=== PATIENT | male | born 1955 | race Caucasian/White ===

== ENCOUNTER 2024-02-18 14:30 | Inpatient (IN) | payer OTHER, MEDICARE, SELFPAY ==
[2024-02-18] VITALS (11 sets, daily range): BP systolic 129–153; BP diastolic 87–107; BMI 29.0; BMI 28.0
--- NOTE | 2024-02-18 11:50 | ED.GENMED ---
History of Present Illness
General
Chief Complaint: Breathing Problem
Source: patient and spouse
Time Seen by Provider: 02/18/24 11:30
History of Present Illness
History of Present Illness:
69-year-old male presents to the emergency room with complaints of shortness of breath which seems to be most prominent with exertion like carrying objects at work. He also feels particular short of breath at night and when he is lying flat. He
states he is 'jolted awake' by a sensation that he cannot catch his breath and that his heart stopped. Patient has a distant history of atrial fibrillation for which he received a cardioversion. He does not take oral anticoagulant. He denies any
recent change in medications. He does not monitor his weight. He has noticed some edema in his legs. Patient also feels like he has edema in his neck and chest secondary to a radical neck dissection for tongue cancer. Patient denies any
tightness or heaviness in his chest. Patient states the most distressing thing about his symptoms is his inability to sleep. He has not had adequate sleep in over a week. He is attempted sleeping propped up with pillows, sitting up in a chair.
He does feel a bit better the more propped up he is but not enough to get adequate sleep.
Phy Exam
Physical Exam
Physical Exam:
General: Awake, Alert, Oriented X3. No acute distress.
Vitals: unremarkable
Head: Atraumatic
Eyes: Pupils equal, EOMI
Throat: Airway intact, no exudates
Neck: Trachea midline
Lungs: Crackles bilateral bases
Heart: Regular rate, no murmurs
Abd: Soft, Nontender, No pulsatile mass
Neuro: Nonfocal l
Skin: Warm, dry, no rash
Extremities: pulses equal b/l, 1+ edema
Scores
[id number] Score for Afib Stroke Risk
Age in Years (65=0, 65-74=1, >/=75=2): 65-74
Sex (Female=+1): Male
Congestive Heart Failure History (Yes=+1): Yes
Hypertension History (Yes=+1): No
Stroke/TIA/Thromboembolism History (Yes=+2): No
Vascular Disease History (Yes=+1): No
Diabetes Mellitus (Yes=+1): No
Score: 2
Anticoagulation Recommendations: Recommend anticoagulation (as validated in nonvalvular fib)
Heart Failure Risk
Heart Failure Risk Score: Yes
History of Stroke or TIA: No
History of intubation for respiratory distress: No
Heart rate on ED arrival >/= 110: Yes
SaO2 <90% on arrival on room air: No
HR >/=110 during 3min walk test (or too ill to perform test): Yes
ECG has acute ischemic changes: No
Urea >/=12mmol/L (BUN 33.6mg/dL): No
Serum CO2>/=35mmol/L: No
Troponin I or T elevated to MT Level (0.4mg/dL): No
NT-proBNP >/=5,000ng/L (5,000pg/ml): Yes
HF Risk Score: 3
Admission Status: HIGH RISK 15.9% Consider SNF treatment or admission to hospital
Course
Orders/Labs/Results
Orders:
Orders
02/18/24 11:07
EKG [Electrocardiogram (*1)] Urgent
Reason for Study: Shortness of Breath
EKG- Treatment ONCE
02/18/24 11:49
Cardiac Monitoring- Treatment ONCE
CR Chest - 2 Views Urgent
Comment:
Reason For Exam: sob, peripheral edema
02/18/24 11:51
Basic Metabolic Panel Urgent
Complete Blood Count/With Diff Urgent
NT-proBNP Urgent
Troponin I Urgent
02/18/24 12:44
Apixaban [Eliquis] 5 mg PO NOW STA
Furosemide [Lasix] 40 mg IV NOW STA
Abnormal Lab Results
02/18/24
11:51
RBC 4.56 L 10^6/uL
(4.70-6.10)
MCV 94.5 H fL
(80.0-94.0)
MCH 33.1 H pg
(27.0-31.0)
MPV 11.0 H fL
(7.4-10.4)
Absolute Monos (auto) 0.8 H 10^3/uL
(0.1-0.6)
Lymphocytes % 16.9 L %
(20.5-51.1)
Monocytes % 11.1 H %
(1.7-9.3)
Carbon Dioxide 20 L mmol/L
(22-30)
BUN 22 H mg/dl
(9-20)
Glucose 113 H mg/dl
(70-99)
02/18/24 11:51
02/18/24 11:51
Vital Signs
Initial and Last Documented VS:
Initial Vital Signs
Pulse Resp BP Pulse Ox
97 20 141/98 98
02/18/24 10:59 02/18/24 10:59 02/18/24 10:59 02/18/24 10:59
Last Documented Vital Signs
Pulse Resp BP Pulse Ox
81 34 129/89 97
02/18/24 12:52 02/18/24 11:19 02/18/24 11:17 02/18/24 11:19
MDM/Problems Addressed
Differential Diagnosis Includes:
CHF, symptomatic anemia, angina
MDM/Problems Addressed:
Patient presents with dyspnea, paroxysmal nocturnal dyspnea and edema. Clinically congestive heart failure seemed the most likely diagnosis. Pulmonary edema was confirmed on chest x-ray. His BNP is quite elevated. Patient will receive diuresis.
He is also in A-fib. He is not anticoagulated and based on his [id number] score he should be. Patient not a candidate for cardioversion in the emergency room for couple reasons. First he is not anticoagulated second he is pulmonary edema which
would make him much more likely to have respiratory complications of sedation.
*Radiology
Radiology exam reviewed: preliminary read by ED provider (Personally viewed the patient's chest x-ray and see pulmonary edema)
*Pulse Oximetry
Patient hypoxic: no
*EKG
Interpreted by ED Provider?: Yes
Interpretation: normal
Heart Rate: 88
Rate: normal
Rhythm: a-fib
Interval: normal interval
Ischemia: non-specific ST changes
*Guide Plant Interpretation
Rate: normal
Interpretation: abnormal
Rhythm: a-fib
*Critical Care Note
Total Time (30-74mins, 75-104mins- exclusive of procedures): Not Applicable
ED Attending Note
-
Portions of this chart may have been created with voice recognition software.� Occasional wrong word or��sound alike� substitutions may have occurred due to the inherent limitations of voice recognition software.
Discharge Plan
Departure
Patient Disposition: Admit
Date of Disposition: 02/18/24
Time of Disposition: 12:45
Admit to: Telemetry
Presentation/result/management discussed w/ accepting MD/DO: Hospitalist
Condition: Fair
Discharge Problem:
CHF (congestive heart failure), A-fib
Prescriptions:
No Action
multivitamin Tablet
1 tab PO DAILY
losartan 50 mg tablet
50 mg PO BID
meloxicam 15 mg tablet
15 mg PO DAILYPRN PRN (Reason: mild pain)
sildenafil 25 mg Tablet
25 mg PO DAILYPRN PRN (Reason: heart tightness)
metoprolol tartrate 50 mg tablet
25 mg PO BID
ibuprofen [Advil] 200 mg Tablet
600 mg PO Q6H PRN (Reason: mild pain)
omeprazole 20 mg Capsule,Delayed Release(Dr/Ec)
20 mg PO DAILY
coenzyme Q10 [Co Q-10] 100 mg Capsule
100 mg PO DAILY
magnesium oxide 500 mg Capsule
500 mg PO BID
Probiotic 3 billion cell Capsule
3,000 mmu cells PO DAILY
turmeric 400 mg Capsule
1 mg PO DAILY
Nitric Boost
1 dose PO DAILY
Super Beets
1 dose PO DAILY
Referrals:
Farhan Marie DO [Family Provider] -
Interventions
Interventions:
*Risk Screen - Suicide Last Done: 02/18/24 10:59
*General Assessment Last Done: 02/18/24 10:59
*Neglect/Abuse Screening Last Done: 02/18/24 10:59
*ED COVID-19 Vaccine History Last Done: 02/18/24 10:59
ED- Cardiac Assessment Last Done: 02/18/24 11:29
ED- Pulmonary Assessment Last Done: 02/18/24 11:29
Discharge Date and Time
Print Language: KAZAKH
[2024-02-18 12:26] LABS: Blood Urea Nitrogen 22 mg/dl (9-20); Calcium 9.3 mg/dl (8.4-10.2); Carbon Dioxide 20 mmol/L (22-30); Chloride 107 mmol/L (98-107); Estimated Creatinine Clearance 87 ml/min; Glucose 113 mg/dl (70-99); Potassium 4.4 mmol/L (3.5-5.1); Sodium 137 mmol/L (135-145); eGFR > 60.00
[2024-02-18 12:27] LABS: % Basophils 0.3 % (0-2); % Eosinophils 1.7 % (0-6); % Immature Granulocytes 0.1 % (0-0.5); % Lymphocytes 16.9 % (20.5-51.1); % Monocytes 11.1 % (1.7-9.3); % Neutrophils 69.9 % (42.2-75.2); Absolute Eosinophils 0.1 10^3/uL (0-0.7); Absolute Lymphocytes 1.3 10^3/uL (1.2-3.4); Absolute Monocytes 0.8 10^3/uL (0.1-0.6); Absolute Neutrophils 5.3 10^3/uL (1.4-6.5); Hematocrit 43.1 % (39.0-52.0); Hemoglobin 15.1 g/dL (13.0-18.0); Mean Corpuscular Hgb 33.1 pg (27.0-31.0); Mean Corpuscular Volume 94.5 fL (80.0-94.0); Nucleated Red Blood Cells % 0 % (-); Platelet Count 193 10^3/uL (130-400); Red Blood Cell Count 4.56 10^6/uL (4.70-6.10); Red Cell Dist. Width 12.6 % (11.5-14.5); White Blood Cell Count 7.6 10^3/uL (4.8-10.8)
[2024-02-18 12:38] LABS: NT-proBNP 6810 pg/ml; Troponin I 0.025 ng/ml
[2024-02-18] MEDS: LASIX 40 MG IV (12:52)
[2024-02-18] MEDS: ELIQUIS 5 MG PO ×2 (12:53→19:39)
--- NOTE | 2024-02-18 13:33 | HPS.HSE ---
Addendum entered and electronically signed by Alli Mancini MD 02/18/24 14:55:
I saw and examined the patient.
The SEMICONDUCTOR MANUFACTURING TECHNICIAN or PA's note was reviewed and I agree with the note.
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
of breath and dyspnea exertion. Further complaints of orthopnea at night. Patient is a persistent worsened over the last 7 days, causing inability to sleep. Further associated with increased lower extremity edema. Patient responded well to IV
Lasix in the ED. Appears to be noncompliant with some medications. Vitals showing tachypnea with respiratory rate of 26, saturating 97% on room air, blood pressure 137/91. Pulse 91. proBNP 6800, troponin x 1 negative. X-ray with mild
interstitial edema and small left pleural effusion. Plan�follow-up TSH, trend troponins, IV Lasix 40 mg daily, cardiology consulted, 2D echo, continue losartan, obtain old records from [place]. Hold sildenafil for now. Progress atrial
fibrillation, heart rate elevated upon examination, increase metoprolol to 50 mg twice daily, start Eliquis. M brijesh for alcohol abuse, Ativan IV as needed. Avoid nephrotoxic agents and monitor BMP while diuresing.
Original Note:
Family Physician
-
Family Physician: Farhan Marie
Chief Complaint
-
Shortness of breath, orthopnea, insomnia x 7 days, edema to legs
History of Present Illness
69-year-old male complaining of shortness of breath and dyspnea on exertion when carrying objects at work. He also complains of orthopnea at night. He reports being awoken by a jolting sensation where he cannot catch his breath. He states the
symptoms have persisted over the past 7 days along with insomnia. He has been using Viagra at night for shortness of breath denies history of pulmonary HTN. Last dose was 12 PM. He had past medical history of A-fib status post cardioversion 2018
at [facility] And is not on any anticoagulation therapy. He also reports increased edema in his legs. He does report some chronic edema in his neck and chest secondary to radical neck dissection for squamous cell tongue cancer. He states
he gets migraines 2-3 times a week and does take 1 Excedrin Migraine which does contain to 50 mg of aspirin. He denies fever, chills, chest pain, abdominal pain, nausea, vomiting, diarrhea, urinary symptoms he was noted to be in new onset CHF in
the ER with A-fib RVR requiring cardioversion. He received IV Lasix and is starting on oral dose Eliquis. He has past medical history of A-fib with history of cardioversion, cardiomyopathy, migraine,, squamous cell tongue with resection,
arthritis, GERD, alcohol abuse.
Medical History
Past Medical History
Past Medical History: Reports Other
Additional Past Medical History:
A-fib with history of cardioversion,
cardiomyopathy patient believes his last echo EF was 30% 2 years ago at [place],
migraines 2 to 3 days a week,,
squamous cell tongue with resection with anterior lymph nodes and base of tongue resection at [facility] 12 years ago
arthritis,/DDD cervical
GERD
alcohol abuse
Past Surgical History: Reports Other
Additional Past Surgical History:
squamous cell tongue with resection with anterior lymph nodes and base of tongue resection at [facility] 12 years ago
A-fib cardioversion 2018 [facility]
Hernia repair
Social History
Tobacco: Non-smoker
Alcohol: Daily (3 beers +8 ounces of either scotch or bourbon, prior 1.7 L of scotch or bourbon +1/2 case of beer stopped 1 month ago mid January)
Drug: None
Personal:
Living: With Family
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
Family History
Family History: Other (Father A-fib, HTN, [place], CABG, CVA, mother uterine CA, Sister alive mental health disorders)
Allergies / Home Medications
Allergies reflects when Allergies were last updated in [email or web address].
Home Medications with original date entered in [email or web address]
Allergy/Medication List:
Allergies
Allergy/AdvReac Type Severity Reaction Status Date / Time
No Known Allergies Allergy Unverified 02/18/24 11:32
Home Medications
Nitric Boost 1 dose PO DAILY 02/18/24
Super Beets 1 dose PO DAILY 02/18/24
coenzyme Q10 100 mg capsule (Co Q-10) 100 mg PO DAILY 02/18/24
ibuprofen 200 mg tablet (Advil) 600 mg PO Q6H PRN mild pain 02/18/24
lactobacillus combination no.4 3 billion cell capsule (Probiotic) 3,000 mmu cells PO DAILY 02/18/24
losartan 50 mg tablet 50 mg PO BID 02/18/24
magnesium oxide 500 mg capsule 500 mg PO BID 02/18/24
meloxicam 15 mg tablet 15 mg PO DAILYPRN PRN mild pain 02/18/24
metoprolol tartrate 50 mg tablet 25 mg PO BID 02/18/24
multivitamin 1 tab PO DAILY 02/18/24
omeprazole 20 mg capsule,delayed release 20 mg PO DAILY Gastrointestinal Issue 02/18/24
sildenafil 25 mg tablet 25 mg PO DAILYPRN PRN heart tightness 02/18/24
turmeric 400 mg capsule 1 mg PO DAILY 02/18/24
Review of Systems
-
History Source: Patient and Family ( )
A 12 point ROS was completed and negative except as noted: Yes
Constitutional: Reports Sleep Disturbance (Insomnia x 7 days); Denies Fever or Chills
EENT: Denies Sore Throat, Mouth Swelling or Runny Nose
Respiratory: Reports Cough (Nonproductive) and Trouble Breathing (DAY)
Cardiac: Denies Chest Pain, Diaphoresis, Palpitations or Syncope
Abdomen/GI: Denies Abdominal Pain, Nausea, Vomiting, Diarrhea, Constipated, Bloody Stools or Black Stools
: Denies Dysuria, Frequency, Flank Pain, Incontinence, Difficulty Voiding or Urgency
Musculoskeletal: Reports Edema (+2 lower extremity pitting edema); Denies Joint Pain
Skin: Denies Itching or Rash
Neurological: Denies Dizzy, Headache or Weakness
Endocrine: Reports No Symptoms
Hematologic/Lymphatic: Reports No Symptoms
Psych: Reports Calm
Physical Exam
Vital Signs
Vital Signs
Pulse Resp BP Pulse Ox
81 34 129/89 97
02/18/24 12:52 02/18/24 11:19 02/18/24 11:17 02/18/24 11:19
Physical Exam
General: Comfortable and Conversant; No Pain, Fever or Chills
HEENT: NormoCephalic, Anicteric, Moist mucous membranes, PERRLA, [place] Conjunctivae, No Ptosis and Other (No visible neck swelling)
Respiratory: Clear; No Wheezes, Rales or Rhonchi
Cardiac: S1/S2, Irregular Rhythm (A-fib controlled rate 81 bpm) and Peripheral Edema (+2 bilateral lower extremity edema); No Murmur, Rub or Gallop
GI: Soft, Non Tender, Non Distended, Normal Bowel Sounds and No Hepatosplenomegaly
Rectal: Deferred by Provider
Genito-urinary: Deferred by me
Musculoskeletal: No Clubbing, No Cyanosis, Edema, Left Lower Extremity (+2 lower extremity) and Edema, Right Lower Extremity (+2 lower extremity); No Edema, Left Upper Extremity or Edema, Right Upper Extremity
Skin: Warm and Dry; No Rash or Jaundice
Neuro: AO x 3, No Motor Deficits, Nonfocal/grossly intact, Cranial Nerves Intact and No Sensory Deficits; No Slurred Speech, Facial Droop or Tremors
Psych: Calm
Laboratory Results
-
02/18/24 11:51
02/18/24 11:51
Laboratory Results
Troponin I 0.025 ng/ml 02/18/24 11:51
Data Reviewed
-
Diagnostic Radiology: Report Reviewed by me
Lab Data: Labs Reviewed by me
Impression/Plan
-
Impression/plan:
Admit to Tele
#New onset CHF
#Hx cardiomyopathy patient believes last EF was 38% 2021 at [place]
BNP 6810
IV Lasix 40 mg given in ER
Check 2D echo
Consult [facility] cardiology
-Obtain old records from [place] cardiology including echo
-TSH with free T4 reflex
-Hold sildenafil 25 mg as needed-patient has been taking nightly for the past 7 days for shortness of breath
CXR cardiomegaly with mild interstitial edema and small left pleural effusion
#Atrial fibrillation�reoccurrence/history remote A-fib with cardioversion
-Check troponin
-Heart rate currently controlled at 81 bpm
-Continue metoprolol to tartrate 25 mg twice daily Increase METOPROLOL to 50 mg BID
-cont losartan 50 mg twice daily
-Will start Eliquis 5 mg twice daily
-Trend troponins given EKG changes
EKG A-fib 88 bpm, QTc [address]-T wave abnormality in lateral leads no prior EKGs
#HTN- benign
BP 144/107
-Increase Toprol at 50 mg twice daily
-cont losartan 50 mg twice daily
#Alcohol abuse
Was drinking 1.7 L of whiskey or bourbon and half a case a day of beer up until mid January
Currently drinking 8 ounces a day of either scotch or bourbon +3 beers daily last drink was midnight
-MSAs screen with protocol
-IV thiamine, IV folate
-Check magnesium
#Frequent migraines
2 to 3/week not on any prophylactic meds
Takes Excedrin migraine which does contain aspirin 250 mg, plus caffeine 65 mg, acetaminophen 250 mg
-Recommended taking Excedrin tension without the aspirin due to starting Eliquis
#GERD
-Continue omeprazole 20 mg daily
#Cervical DDD
Meloxicam 15 mg daily as needed last dose yesterday 02/17/2024
DVT prophylaxis
Patient to be initiated on Eliquis for A-fib
Full code
--- NOTE | 2024-02-18 14:37 | CON.CAR ---
Addendum entered and electronically signed by Ector Harris MD 02/18/24 16:39:
I saw and examined the patient.
The Auto Body Repair Estimator's note was reviewed and I agree with the note.
Comment:
GEN: No distress, awake, Ox3
HEENT: supple, anicteric, mmm
LUNGS: scatt rhonchi
CV: irreg, S1/S2, 1/6 syst LSB, no gallop
ABD: soft, BS+, NT/ND
EXT: +1 edema
NEURO: Gross non-focal
SKIN: No rash
Plan:
He has a past medical history of pretension, paroxysmal atrial fibrillation, chronic heart failure with mildly reduced ejection fraction, and alcohol use. He states that for the past month or 2 he has been drinking significant amounts of alcohol
5-7 drinks a day it is to be and has noticed increased shortness of breath, orthopnea, abdominal bloating, and palpitations. He had some mild chest fullness as well. He has had a previous cardioversion was briefly on a blood thinner but this was
stopped as he works as a woodworking machinist. He presented to the emergency room today and was found to be back in atrial fibrillation and congestive heart failure.
Check repeat echocardiogram to reevaluate LVEF. Previous EF at [facility] was in the 40 to 45% range. Start Toprol XL 25mg po bid. continue losartan. Pending results of echo will likely add Aldactone. Will check cost of Jardiance/Farxiga.
Start Lasix 40 mg IV twice daily. Troponin is indeterminate
Will tentatively plan for KATE cardioversion in a.m. to restore sinus rhythm. He is agreeable to Eliquis for at least a month understands the importance of compliance.
We discussed that he needs to stop using alcohol. Consider benzodiazepines and watch for withdrawal symptoms.
CHF education. N.p.o. after midnight.
Original Note:
Consultation
Consultation Request
Date/Time Consultation Performed: 02/18/24
Requesting Provider: Dr. Mancini
Performing Provider: Shabana Auguste PA-C for Dr. Harris
Reason for Consultation: CHF, afib
Medical History
-
Chief Complaint: SOB
History of Present Illness:
Patient is a 69 yo M with PMH of HTN, squamous cell tongue cancer s/p radical neck dissection, migraines, afib s/p CV, HFrEF, prior CM. Patient follows with Dr. Streeter of [place] cardiology. States he has not seen him in approximately 2 years. He
reports he has history of alcohol use disorder and has previously required treatment at facility. He has family history of alcoholism in both grandfathers. He reports [place] States he was
drinking a handle a week as well as about 1/2 case of beer. He reports around this time he started noticing some symptoms. States over the last week he has not been able to sleep due to orthopnea. He has also noted DAY. Does not take his weight. Not
on diuretic as OP, although states he has lasix at home however never really took it. States he was told by windmill technician to take 1/2 a viagra when he can't breathe? ProBNP elevated at 6810 and CXR with evidence of acute CHF. Also in afib with
controlled response. No palpitations. Was only on blood thinner for short time in setting of prior cardioversion. Cardiology consulted for evaluation.
PMH:
Paroxysmal atrial fibrillation with history of cardioversion in 2019
Chronic heart failure with presumed reduced ejection fraction
Suspected cardiomyopathy, reports EF 38%
Hypertension
Squamous cell tongue cancer status post radical neck dissection at [place] 2011
History of migraines
Alcohol use disorder, family history of alcoholism
Past Medical History
Past Medical History: Other (in HPI)
Social History
Alcohol: Chronic Alcoholic
Personal:
Living: With Family
Employment: Employed
Family History
Family History: Other (alcoholism)
Allergies / Home Medications
Allergy/AdvReac Type Severity Reaction Status Date / Time
No Known Allergies Allergy Unverified 02/18/24 11:32
�Medication �Instructions �Recorded �Confirmed �Type
Nitric Boost 1 dose PO DAILY 02/18/24 02/18/24 History
Super Beets 1 dose PO DAILY 02/18/24 02/18/24 History
coenzyme Q10 100 mg capsule (Co 100 mg PO DAILY 02/18/24 02/18/24 History
Q-10)
ibuprofen 200 mg tablet (Advil) 600 mg PO Q6H PRN mild pain 02/18/24 02/18/24 History
lactobacillus combination no.4 3 3,000 mmu cells PO DAILY 02/18/24 02/18/24 History
billion cell capsule (Probiotic)
losartan 50 mg tablet 50 mg PO BID 02/18/24 02/18/24 History
magnesium oxide 500 mg capsule 500 mg PO BID 02/18/24 02/18/24 History
meloxicam 15 mg tablet 15 mg PO DAILYPRN PRN mild pain 02/18/24 02/18/24 History
metoprolol tartrate 50 mg tablet 25 mg PO BID 02/18/24 02/18/24 History
multivitamin 1 tab PO DAILY 02/18/24 02/18/24 History
omeprazole 20 mg capsule,delayed 20 mg PO DAILY Gastrointestinal 02/18/24 02/18/24 History
release Issue
sildenafil 25 mg tablet 25 mg PO DAILYPRN PRN heart 02/18/24 02/18/24 History
tightness
turmeric 400 mg capsule 1 mg PO DAILY 02/18/24 02/18/24 History
Review of Systems
-
History Source: Patient and Family
All other systems: Negative unless noted
Physical Exam
Vital Signs
Pulse Resp BP Pulse Ox
81 34 129/89 97
02/18/24 12:52 02/18/24 11:19 02/18/24 11:17 02/18/24 11:19
Lab Results
02/18/24 11:51
02/18/24 11:51
Troponin I 0.025 ng/ml 02/18/24 11:51
Zgu-T-Lhpjjlupdjy Pept 6810 pg/ml 02/18/24 11:51
Physical Exam
General: No Apparent Distress and Comfortable
HEENT: Normocephalic, Anicteric and Moist Mucous Membranes
Respiratory: Crackles (few) and Non Labored Respirations
Cardiac: S1/S2 and Irregular Rhythm
GI: Soft, Non Tender, Normal Bowel Sounds and Distended
Musculoskeletal: No Clubbing, No Cyanosis and Edema (1+ of B/L LE)
Skin: Warm and Dry
Neuro: AO x 3
Impression / Plan
-
Primary Treasury Agent: Dr. Conor Streeter of [facility]
Assessment:
Presentation with DAY/orthopnea
Acute on chronic heart failure with presumed reduced ejection fraction
Nonischemic cardiomyopathy, EF 40-45% by echo 2022
Paroxysmal atrial fibrillation with history of cardioversion in 2020, with controlled ventricular response, possibly now persistent
Hypertension
Squamous cell tongue cancer status post radical neck dissection at [place] 2011 with residual pain/swelling/tingling to arm
History of migraines
JACK previously on CPAP
GERD
Alcohol use disorder with prior rehab stay, family history of alcoholism
Reports recent suspected R broken rib
ECHO 11/07/22: EF 40 to 45%, mild global hypokinesis, grade 1 diastolic dysfunction, mild MR, mild AI
Plan:
-Patient presents with dyspnea on exertion/orthopnea/insomnia over the last week
-records requested from [facility] cardiology and reviewed including echo 11/2022, last office visit 07/2022
-With evidence of acute heart failure by chest x-ray and elevated proBNP. Responding well to IV Lasix thus far in ER, will continue. Creatinine stable
-CHF education
-Noted to presently be in atrial fibrillation with controlled ventricular response. Previous A-fib was paroxysmal, however could potentially now be persistent
-[id number] score of 4 for age, hypertension, CHF. Eliquis 5 mg twice daily initiated in ER. by [facility] office note, he had previously declined OAC
-Check echo, last from 2022 with EF 40-45%. he is listed in office note of having diagnosis of pulm HTN however none noted by echo 11/2022
-GDMT as indicated for CM. will transition lopressor to toprol 50mg daily. continue OP losartan. consider addition of aldactone. will have CM assess cost to patient of jardiance/entresto
-trop 0.025, trend. prior cath with nonobstructive CAD. no CP. EKG with lateral T wave changes
-Consider benefit/efficacy of attempting KATE/cardioversion prior to discharge. may require AAD therapy
-discussed importance of ETOH cessation. [facility] protocol, monitor for withdrawal
-CPAP compliance
-may require CXR with rib views as patient thinks he broke his rib at chiropractor appt recently, continues with pain with ROM
-d/w patient and at bedside. d/w hospitalist PROFESSOR OF ART
Data Reviewed
-
EKG: Tracing Personally Visualized and interpreted
Radiology: Report Reviewed by me
Medical Tests (Nuc Med, Echo etc): Report Reviewed by me
Labs: Labs Reviewed by me
Old Records: Requested and Reviewed
[2024-02-18 15:38] LABS: TSH Reflex To Free T4 1.26 uIU/ml (0.47-4.68)
[2024-02-18] MEDS: THIAMINE INJECTION IV (15:44)
[2024-02-18 17:14] LABS: Urine Albumin Negative (Neg - Trace); Urine Bilirubin Negative (Negative); Urine Character Clear (Clear); Urine Color Yellow; Urine Glucose Negative (Negative); Urine Ketone Negative (Negative); Urine Leukocyte Negative (Negative); Urine Nitrite Negative (Negative); Urine Occult Blood Negative (Negative); Urine Urobilinogen Negative (Neg - 1+); Urine pH 6.5 (5.0-9.0)
[2024-02-18 17:19] LABS: Amphetamines Negative (Negative); Barbiturates Negative (Negative); Benzodiazepines Negative (Negative); Buprenorphine Negative (Negative); Cocaine Negative (Negative); Marijuana Negative (Negative); Methadone Negative (Negative); Methamphetamines Negative (Negative); Opiates Negative (Negative); Phencyclidine Negative (Negative); Tricyclic Antidepressants Negative (Negative)
[2024-02-18 17:55] LABS: INR 1.33; PT 16.6 Sec (11.4-14.6)
[2024-02-18 17:56] LABS: APTT 31.4 Sec (23.4-35.0)
[2024-02-18 17:59] LABS: Alcohol None Detected; GGTP 204 U/L (15-73); Magnesium 1.8 mg/dl (1.6-2.3); Phosphorus 4.4 mg/dl (2.5-4.5)
[2024-02-18 18:05] LABS: B-Hydroxybutyrate 0.78 mmol/L (0.02-0.27)
[2024-02-18 18:09] LABS: Troponin I 0.023 ng/ml
[2024-02-18] MEDS: COZAAR 50 MG PO (19:39)
[2024-02-18] MEDS: MAGNESIUM OXIDE 500 MG PO (19:39)
[2024-02-18] MEDS: TYLENOL 650 MG PO (23:32)
[2024-02-18] MEDS: THIAMINE INJECTION 200 MG IV (23:32)
[2024-02-19] VITALS (14 sets, daily range): BP systolic 125–167; BP diastolic 74–106; PULSE 83; O2SAT 97; BMI 28.1
[2024-02-19 00:18] LABS: Troponin I 0.038 ng/ml
[2024-02-19] MEDS: ATIVAN 1 MG PO (01:30)
[2024-02-19] MEDS: LOPRESSOR 5 MG IV (02:20)
[2024-02-19] MEDS: LASIX 40 MG IV ×2 (03:35→15:36)
[2024-02-19] MEDS: ELIQUIS 5 MG PO ×2 (07:29→19:23)
[2024-02-19] MEDS: TOPROL XL 50 MG PO (07:30)
[2024-02-19] MEDS: COZAAR 50 MG PO ×2 (07:30→19:22)
[2024-02-19 07:52] LABS: % Basophils 0.3 % (0-2); % Eosinophils 1.5 % (0-6); % Immature Granulocytes 0.3 % (0-0.5); % Lymphocytes 15.1 % (20.5-51.1); % Monocytes 10.3 % (1.7-9.3); % Neutrophils 72.5 % (42.2-75.2); Absolute Eosinophils 0.1 10^3/uL (0-0.7); Absolute Lymphocytes 1.4 10^3/uL (1.2-3.4); Absolute Monocytes 0.9 10^3/uL (0.1-0.6); Absolute Neutrophils 6.6 10^3/uL (1.4-6.5); Hematocrit 48.1 % (39.0-52.0); Hemoglobin 16.9 g/dL (13.0-18.0); Mean Corp Hgb Conc. 35.1 g/dL (33.0-37.0); Mean Corpuscular Hgb 33.7 pg (27.0-31.0); Mean Corpuscular Volume 95.8 fL (80.0-94.0); Mean Platelet Volume 10.6 fL (7.4-10.4); Nucleated Red Blood Cells % 0 % (-); Platelet Count 191 10^3/uL (130-400); Red Blood Cell Count 5.02 10^6/uL (4.70-6.10); Red Cell Dist. Width 12.4 % (11.5-14.5); White Blood Cell Count 9.1 10^3/uL (4.8-10.8)
[2024-02-19 08:06] LABS: Troponin I 0.042 ng/ml
[2024-02-19 08:50] LABS: ALT (SGPT) 104 U/L (0-50); AST (SGOT) 75 U/L (17-59); Albumin 4.5 g/dl (3.5-5.0); Alkaline Phosphatase 70 U/L (38-126); Blood Urea Nitrogen 25 mg/dl (9-20); Calcium 9.7 mg/dl (8.4-10.2); Carbon Dioxide 27 mmol/L (22-30); Chloride 102 mmol/L (98-107); Estimated Creatinine Clearance 79 ml/min; Glucose 104 mg/dl (70-99); Potassium 4.7 mmol/L (3.5-5.1); Sodium 139 mmol/L (135-145); Total Bilirubin 1.7 mg/dl (0.2-1.3); Total Protein 6.9 g/dl (6.3-8.2); eGFR > 60.00
[2024-02-19] MEDS: MAGNESIUM OXIDE 500 MG PO ×2 (10:14→19:22)
[2024-02-19] MEDS: PROTONIX 40 MG PO (10:14)
[2024-02-19] MEDS: THIAMINE INJECTION 200 MG IV ×3 (10:14→23:11)
[2024-02-19] MEDS: FOLVITE 1 MG PO (10:15)
[2024-02-19] MEDS: PACERONE 200 MG PO ×2 (10:15→19:22)
--- NOTE | 2024-02-19 10:18 | PTCARENOTE ---
Pt returned from [facility]. report from [place] RN, Pt drowsy but arousable to verbal stimuli, oriented x3. Pt has no c/o pain at this time, VSS 97% on 2L. NSR on tele. Pr reoriented to room, call aguilar within reach, at bedside, plan of care
continues.
--- NOTE | 2024-02-19 12:00 | W.PN.CARDCBS ---
Addendum entered and electronically signed by Pricila Roque DO 02/19/24 18:19:
Spoke with case management. Until patient's deductible is made, nongeneric medications such as Jardiance, Entresto and Eliquis may be because prohibitive. Hospital provide patient with 1 month 3 patient assistance card for Eliquis. Can work on
preauthorization of Entresto and Jardiance as an outpatient. Will plan to start Aldactone in the next 24 to 48 hours. Continue uninterrupted Eliquis given recent cardioversion
Original Note:
Today's Communication / Plan
-
KATE/cardioversion today successful with conversion to sinus rhythm
Continue Eliquis anticoagulation.
Start amiodarone
Transfer to IVU for continue heart failure optimization
Continue IV diuresis
Optimize goal-directed medical therapy as able
Impression / Plan
-
Primary Clinical Cytogeneticist: Dr. Conor Streeter of [facility]
Assessment:
Presentation with DAY/orthopnea
Acute on chronic heart failure with presumed reduced ejection fraction
Nonischemic cardiomyopathy, EF 40-45% by echo 2022
Paroxysmal atrial fibrillation with history of cardioversion in 2020, with controlled ventricular response, possibly now persistent
Hypertension
Squamous cell tongue cancer status post radical neck dissection at [place] 2011 with residual pain/swelling/tingling to arm
History of migraines
JACK previously on CPAP
GERD
Alcohol use disorder with prior rehab stay, family history of alcoholism
Reports recent suspected R broken rib
ECHO 11/07/22: EF 40 to 45%, mild global hypokinesis, grade 1 diastolic dysfunction, mild MR, mild AI
Echo 02/18/2024: Dilated left ventricle with moderate to severely reduced LV systolic function with diffuse hypokinesis. EF by volumetric assessment 30% with mild LVH and grade 2 diastolic dysfunction. RV dilated with normal function. Severely
dilated left atrium. Dilated right atrium. Mild MR and TR. Aortic sclerosis with eccentric moderate to severe aortic regurgitation. Estimated pulmonary artery pressure 45-50 mmHg. No pericardial effusion. IVC is dilated.
Plan:
Acute on chronic heart failure with reduced ejection fraction in the setting of rapid atrial fibrillation and ongoing alcohol abuse
-Worsening ejection fraction compared to last year now with a EF estimated 25-30% with global biventricular dysfunction
-Initial proBNP 6810
-Had previously followed with [facility] cardiology, Dr. Streeter, last seen in July 2022. Reports prior cardiac catheterization perhaps 5 years ago which did not require stenting. Records have been requested for review
-Continue IV diuresis and optimization of goal-directed medical therapy. Case management to assess cost of Entresto and Jardiance. If not cost prohibitive we will change losartan to Entresto 25/26 BID tomorrow.
-CHF education and diet. Continue to monitor I's and O's and daily weights
-Discussed the importance of alcohol cessation. Patient has previously been successful in rehab and has been trying to cut down alcohol use on his own
-Ideally, rhythm control strategy for atrial fibrillation.
-May also need eventual additional ischemic evaluation pending review of records received from [facility]
History of paroxysmal atrial fibrillation's currently in atrial fibrillation with rapid ventricular response.
-Patient reports having had 5 cardioversions through [facility]; no history of ablation
-He was not on oral anticoagulation at time of admission due to patient preference
-[id number] score of 4 for age, hypertension, CHF. Eliquis 5 mg twice daily initiated in ER 02/18/24
-KATE cardioversion today successful with converting atrial fibrillation to sinus rhythm
-Will start amiodarone 200 mg twice daily for 2 weeks followed by 200 mg daily and follow serial EKGs
-TSH within normal
-Alcohol cessation strongly advised
-Sleep apnea with previous CPAP recommendations; strongly advised CPAP compliance and return to pulmonary for outpatient follow-up
-Would likely benefit from outpatient EP consultation
Elevated cardiac troponin with no chest pain likely related to rapid atrial fibrillation and heart failure exacerbation
-Patient reports prior catheterization approximately 5 years ago at [place] that did not require intervention
-Records requested for review; possible repeat ischemic evaluation as an outpatient
-Optimize medical therapy as able
Ongoing alcoholism
-discussed importance of ETOH cessation. [facility] protocol, monitor for withdrawal
-Discussed with primary service
Elevated LFTs likely related to ongoing alcohol use with a component of heart failure decompensation.
-Monitor LFTs with diuresis
-Continued alcohol cessation
-Will defer workup to medicine if needed
Squamous cell tongue cancer status post radical neck dissection at [place] 2012; no chemotherapy or radiation
-No history of dysphagia per patient.
Transfer to IVU
d/w hospitalist ELECTRONIC PAGINATION SYSTEM OPERATOR
Progress Note - Clinical Cytogeneticist
Subjective
Date of Service: February 19, 2024
Seen and examined prior to KATE/cardioversion. Still short of breath but no chest pain.
Objective
Labs:
02/19/24 07:30
02/19/24 07:30
Labs
Hgb 16.9 g/dL (13.0-18.0) 02/19/24 07:30
Hct 48.1 % (39.0-52.0) 02/19/24 07:30
Plt Count 191 10^3/uL (130-400) 02/19/24 07:30
PT 16.6 Sec (11.4-14.6) H 02/18/24 17:33
INR 1.33 02/18/24 17:33
APTT 31.4 Sec (23.4-35.0) 02/18/24 17:33
Sodium 139 mmol/L (135-145) 02/19/24 07:30
Potassium 4.7 mmol/L (3.5-5.1) 02/19/24 07:30
BUN 25 mg/dl (9-20) H 02/19/24 07:30
Creatinine 1.0 mg/dL (0.7-1.3) 02/19/24 07:30
Glucose 104 mg/dl (70-99) H 02/19/24 07:30
Troponins
02/18/24 02/18/24 02/18/24
11:51 17:33 23:28
Troponin I 0.025 0.023 0.038 H* D
02/19/24
07:30
Troponin I 0.042 H*
Vital Signs and I&O:
Vital Signs
Temp Pulse Resp BP Pulse Ox
98.6 F 83 20 138/92 96
02/19/24 11:30 02/19/24 11:30 02/19/24 11:30 02/19/24 11:30 02/19/24 11:30
Vital Signs
Temp Pulse Resp BP Pulse Ox
98.6 F 83 20 138/92 96
02/19/24 11:30 02/19/24 11:30 02/19/24 11:30 02/19/24 11:30 02/19/24 11:30
Intake & Output
02/17/24 02/18/24 02/19/24 02/20/24
06:59 06:59 06:59 06:59
Output Total 3050 / 3050
Balance -3050 / -3050
Physical Exam
Physical Exam
General: AOA x 3. 98% on room air
Heart: Irregularly irregular. Tachycardic. Positive S1-S2 2/6 SM
Lungs: Bronchovesicular breath sounds decreased at bases with fine crackles
Abd: Positive BS, NT/ND, neg rebound/rigidity/guarding
Ext: Trace pedal edema
Neuro: nonfocal
--- NOTE | 2024-02-19 13:41 | PTOTSP ---
Pt had cardioversion this AM. This afternoon he is fully dressed in his own clothes and shoes and is able to ambulate in hallway without an assistive device. No acute PT needs were identified. Will sign off.
--- NOTE | 2024-02-19 14:21 | W.PN.HOSP.TC ---
Today's Communication/Plan
-
Continue IV diuresis
Start amiodarone
Eliquis
MSAS, Ativan as needed
Assessment / Plan
Assessment / Plan
Physical Exam
General: Comfortable and Conversant; No Pain, Fever or Chills
HEENT: NormoCephalic, Anicteric, Moist mucous membranes, PERRLA, Challis Conjunctivae, No Ptosis and Other (No visible neck swelling)
Respiratory: Clear; No Wheezes, Rales or Rhonchi
Cardiac: S1/S2, regular; No Murmur, Rub or Gallop
GI: Soft, Non Tender, Non Distended, Normal Bowel Sounds and No Hepatosplenomegaly
Rectal: Deferred by Provider
Genito-urinary: Deferred by me
Musculoskeletal: No Clubbing, No Cyanosis, Edema; No Edema, Left Upper Extremity or Edema, Right Upper Extremity
Skin: Warm and Dry; No Rash or Jaundice
Neuro: AO x 3, No Motor Deficits, Nonfocal/grossly intact, Cranial Nerves Intact and No Sensory Deficits; No Slurred Speech, Facial Droop or Tremors
Psych: Calm
#Acute on Chronic HFrEF and HFpEF
#Hx cardiomyopathy patient believes last EF was 38% 2021 at [place]
BNP 6810
Cont IV Lasix
Check 2D echo: EF 30% grade 2 diastolic dysfunction, severe aortic regurgitation
Monitor daily weights, I's and O's
� Continue GDMT
#Atrial fibrillation�reoccurrence/history remote A-fib with cardioversion
Cardioverted today
� Continue Eliquis
� Start amiodarone
� Continue Toprol
#Nonischemic myocardial injury
� Exacerbated by acute HFrEF and atrial fibrillation
� Troponins flat
� No chest pain
#HTN- benign
See plan above
#Alcohol abuse
Was drinking 1.7 L of whiskey or bourbon and half a case a day of beer up until mid January
Currently drinking 8 ounces a day of either scotch or bourbon +3 beers daily last drink was midnight
-MSAs screen with protocol
-IV thiamine, IV folate
-Check magnesium
�Educated on cessation
#Frequent migraines
2 to 3/week not on any prophylactic meds
Takes Excedrin migraine which does contain aspirin 250 mg, plus caffeine 65 mg, acetaminophen 250 mg
�Possibly due to alcohol use, nitrates�advised on avoiding a possible
#GERD
-Continue omeprazole 20 mg daily
#Cervical DDD
Meloxicam 15 mg daily as needed last dose yesterday 02/17/2024
DVT prophylaxis
Patient to be initiated on Eliquis for A-fib
Full code
Total time spent on today's encounter was 50 minutes which included time spent in counseling the patient/family regarding diagnosis and treatment plan as listed above, goals of care, and symptom management. Case was discussed with nursing staff,
specialists, and care coordinators/case management. All labs and imaging personally reviewed by me. Remainder the time spent in detailed review of previous records, lab data, imaging, and other medical provider documentation.
Anticipated Discharge: 24 - 48 hours
Subjective/Interval History
-
Date of Service: February 19, 2024
Cardioverted this morning
Objective Data
-
Labs:
Laboratory Results
02/19/24
07:30
WBC 9.1
Hgb 16.9
Hct 48.1
Plt Count 191
Sodium 139
Potassium 4.7
Chloride 102
Carbon Dioxide 27
BUN 25 H
Creatinine 1.0
Glucose 104 H
Calcium 9.7
Total Bilirubin 1.7 H
AST 75 H
ALT 104 H
Alkaline Phosphatase 70
Vital Signs:
Vital Signs
Temp Pulse Resp BP Pulse Ox
97.7 F 79 18 138/92 98
02/19/24 12:13 02/19/24 12:13 02/19/24 12:13 02/19/24 11:30 02/19/24 12:23
I&O
02/18/24 02/19/24 02/20/24
06:59 06:59 06:59
Intake Total 480 / 480
Output Total 3050 / 3050
Balance -3050 / -3050 480 / 480
Review of Systems
-
History Source: Patient
All other systems: Not reviewed unless documented
Data Reviewed
-
Diagnostic Radiology: Image personally visualized and interpreted and Report Reviewed by me
Medical Tests (Nuc Med, Echo etc): Report Reviewed by me
Labs: Labs Reviewed by me
--- NOTE | 2024-02-19 16:28 | CM ---
CM following for DC planning needs.
Met w/ patient and spouse at bedside to complete initial assessment.
Pt. resides w/ spouse in a private, multi level home. Functionally, patient is indep. with ADLs, mobility without the use of any assisted device.
CM observed patient ambulating ad luzma around the unit w/ spouse.
Pt. has prescription plan and uses [facility] on [address] [place].
Anticipate DC to home once stable.
CM will follow.
--- NOTE | 2024-02-19 16:30 | CM ---
Recd consult to rocha the following medications: Entresto, Maria Teresa, Eliquis.
Call to [facility]: [phone]-
Entrestro:
Pt. has to meet a $4000 annual deductible, including medical + pharmacy. Thus far, not including hospitalization, he has met $213 of this. Before he meets deductible, cost will be $619.30/mo. Once deductible is met, co pay will be $0.
Jardiance:
Requires prior auth to # [id number].
Once approved, cost of medication will be $25/mo.
Eliquis:
Requires prior auth to # [id number].
Once approved, patient responsible for 20% of total med cost, which will be approx. $140/mo.
Pt. SHOULD be eligible for free 30 d coupon and $10/mo coupons (since he does not use Medicare for RX coverage).
I have explained this to patient and spouse and documented on his board.
I have updated Attending Ore Buyer + [employer].
--- NOTE | 2024-02-19 17:36 | PTCARENOTE ---
pt continues to be sr on the monitor, hr in the 90s, vss. pt offers no complaints at this time. pt educated on plan of care and pt verbalized understanding. pt has been ambulating through the halls with and tolerating well. call aguilar within
reach.
--- NOTE | 2024-02-19 18:19 | ITS.CL.CARDI ---
Electronic Equipment Maint Tech - Cardioversion
Cardioversion
Procedure Report:
Date of Procedure: 02/19/2024
Procedure: Cardioversion
Indication: Symptomatic atrial fibrillation
Performing Physician: Pricila Roque DO [facility]
Anticoagulation: Eliquis started 02/18/2024
KATE performed prior to procedure: Please see official report. No left atrial appendage thrombus
Technique: The patient was brought to the holding area. Signed informed consent was obtained. A time out was called and performed. The patient was anesthetized by the anesthesia service. Anticoagulation status was reviewed and appropriate.
Transesophageal echocardiogram performed which found no left atrial appendage thrombus. R2 pads were placed anteriorly and posteriorly. A 200 J synchronized biphasic shock restored normal sinus rhythm without significant bradycardia. Twelve-lead
EKG normal sinus rhythm with left atrial enlargement and LVH. Nonspecific ST-T wave abnormality. QTc 461 ms
Conclusion: Uncomplicated cardioversion from atrial fibrillation to sinus rhythm.
Recommendation: Transfer to IVU for continued optimization of heart failure with IV diuresis and goal-directed medical therapy. Initiate amiodarone with EKG and telemetry monitoring. Continue senior care anticoagulation.
[2024-02-19 19:52] LABS: Troponin I 0.047 ng/ml
[2024-02-20] VITALS (8 sets, daily range): BP systolic 117–153; BP diastolic 72–102; BMI 28.0
--- NOTE | 2024-02-20 00:42 | PTCARENOTE ---
Pt. received at change of shift. Pt. seen and assessed in room. Pt. AOx3, VS WNL. MSAS score of 0. No complaints of pain at this time. Continuing to monitor the pt.
[2024-02-20 04:22] LABS: % Basophils 0.3 % (0-2); % Eosinophils 2.8 % (0-6); % Immature Granulocytes 0.1 % (0-0.5); % Lymphocytes 18.8 % (20.5-51.1); % Monocytes 10.4 % (1.7-9.3); % Neutrophils 67.6 % (42.2-75.2); Absolute Eosinophils 0.3 10^3/uL (0-0.7); Absolute Lymphocytes 1.7 10^3/uL (1.2-3.4); Absolute Monocytes 0.9 10^3/uL (0.1-0.6); Absolute Neutrophils 6.1 10^3/uL (1.4-6.5); Hematocrit 45.9 % (39.0-52.0); Hemoglobin 16.4 g/dL (13.0-18.0); Mean Corp Hgb Conc. 35.7 g/dL (33.0-37.0); Mean Corpuscular Hgb 34.3 pg (27.0-31.0); Mean Platelet Volume 10.5 fL (7.4-10.4); Nucleated Red Blood Cells % 0 % (-); Platelet Count 175 10^3/uL (130-400); Red Blood Cell Count 4.78 10^6/uL (4.70-6.10); Red Cell Dist. Width 12.2 % (11.5-14.5)
[2024-02-20 04:49] LABS: ALT (SGPT) 82 U/L (0-50); AST (SGOT) 62 U/L (17-59); Alkaline Phosphatase 66 U/L (38-126); Blood Urea Nitrogen 33 mg/dl (9-20); Calcium 9.3 mg/dl (8.4-10.2); Carbon Dioxide 21 mmol/L (22-30); Chloride 106 mmol/L (98-107); Estimated Creatinine Clearance 79 ml/min; Glucose 110 mg/dl (70-99); Potassium 4.1 mmol/L (3.5-5.1); Sodium 136 mmol/L (135-145); Total Bilirubin 1.1 mg/dl (0.2-1.3); Total Protein 6.5 g/dl (6.3-8.2); eGFR > 60.00
[2024-02-20] MEDS: TOPROL XL 50 MG PO ×2 (08:26→21:46)
[2024-02-20] MEDS: PROTONIX 40 MG PO (08:27)
[2024-02-20] MEDS: LASIX 40 MG IV ×2 (08:27→15:16)
[2024-02-20] MEDS: FOLVITE 1 MG PO (08:27)
[2024-02-20] MEDS: PACERONE 200 MG PO ×2 (08:27→20:19)
[2024-02-20] MEDS: ELIQUIS 5 MG PO ×2 (08:27→20:19)
[2024-02-20] MEDS: COZAAR 50 MG PO ×2 (08:27→20:19)
[2024-02-20] MEDS: MAGNESIUM OXIDE 500 MG PO ×2 (08:27→20:19)
[2024-02-20] MEDS: THIAMINE INJECTION 200 MG IV ×3 (08:28→23:21)
--- NOTE | 2024-02-20 10:35 | W.PN.CARDCBS ---
Addendum entered and electronically signed by Farhan Ferrer MD 02/20/24 11:45:
Patient seen, interviewed and examined by me.
Well-appearing, no acute distress
Regular rate and rhythm with normal S1 and S2, no S3 no S4. There is a grade 1/6 apical holosystolic murmur and no rubs. PMI is normally placed.
Lungs are clear to auscultation bilaterally without wheezes rales or rhonchi.
Abdomen soft nontender nondistended with normoactive bowel sounds
Extremities show trace pretibial edema bilaterally no clubbing or cyanosis.
Neurologic exam is grossly nonfocal.
Agree with advanced practice professionals assessment and plan as noted below.
Continue diuresis with Lasix and will consider change to oral Lasix February 21, 2024
Continue beta-champ and ARB.
Maintain amiodarone status post cardioversion February 19, 2024
Reassess LV function as an outpatient and hopefully in sinus rhythm, this can be done by her outpatient electromechanical assembler at [facility]
Maintain oral anticoagulation, Eliquis
Original Note:
Today's Communication / Plan
-
Continue GDMT
Continue IV diuresis
New to amiodarone, continue 200 mg twice daily x 2 weeks then once a day after
Check magnesium
Continue Eliquis
Impression / Plan
-
Primary Global Security Architect: Dr. Conor Streeter of [facility]
Assessment:
Presented 02/18/2024 with DAY/orthopnea
Acute on chronic heart failure with presumed reduced ejection fraction, proBNP 6810
Nonischemic cardiomyopathy, EF 40-45% by echo 2022, EF now 30% on echo 02/18/2024
Paroxysmal atrial fibrillation with controlled ventricular response
Multiple cardioversion in past
s/p CV 02/19/2024
Hypertension
Squamous cell tongue cancer status post radical neck dissection at [place] 2011 with residual pain/swelling/tingling to arm
History of migraines
JACK previously on CPAP
GERD
Alcohol use disorder with prior rehab stay, family history of alcoholism
Reports recent suspected R broken rib
ECHO 11/07/22: EF 40 to 45%, mild global hypokinesis, grade 1 diastolic dysfunction, mild MR, mild AI
Echo 02/18/2024: Dilated left ventricle with moderate to severely reduced LV systolic function with diffuse hypokinesis. EF by volumetric assessment 30% with mild LVH and grade 2 diastolic dysfunction. RV dilated with normal function. Severely
dilated left atrium. Dilated right atrium. Mild MR and TR. Aortic sclerosis with eccentric moderate to severe aortic regurgitation. Estimated pulmonary artery pressure 45-50 mmHg. No pericardial effusion. IVC is dilated.
Plan:
Acute on chronic heart failure with reduced ejection fraction in the setting of rapid atrial fibrillation and ongoing alcohol abuse
-Worsening ejection fraction compared to last year now with a EF estimated 25-30% with global biventricular dysfunction
-Initial proBNP 6810
-Had previously followed with [facility] cardiology, Dr. Streeter, last seen in July 2022. Reports prior cardiac catheterization perhaps 5 years ago which did not require stenting. Records have been requested for review
-Continue IV diuresis and optimization of goal-directed medical therapy. Continue Toprol, losartan. Consider adding Aldactone
-Case management assessed cost of Entresto $619 a month before deductible then $0 and Jardiance $25 a month but need prior auth. Continue losartan as pt unable to afford Entresto
-CHF education and diet. Continue to monitor I's and O's and daily weights
-Discussed the importance of alcohol cessation. Patient has previously been successful in rehab and has been trying to cut down alcohol use on his own
-May also need eventual additional ischemic evaluation pending review of records received from [facility]
History of paroxysmal atrial fibrillation
-Patient reports having had 5 cardioversions through [facility]; no history of ablation
-He was not on oral anticoagulation at time of admission due to patient preference
-[id number] score of 4 for age, hypertension, CHF. Eliquis 5 mg twice daily initiated in ER 02/18/24, patient responsible for 20% of total med cost, which will be approx. $140/mo. Copay card provided for free 30 days
-KATE cardioversion 02/19/24 successful with converting atrial fibrillation to sinus rhythm. Remains in sinus rhythm per review of tele. Patient is having frequent PVCs, occasional 2-3 beat runs of NSVT. Will check magnesium level
-Started amiodarone 200 mg twice daily (02/19/2024) for 2 weeks followed by 200 mg daily
-EKG 02/20/2024 sinus rhythm, QTc 492
-TSH within normal
-Alcohol cessation strongly advised
-Sleep apnea with previous CPAP recommendations; strongly advised CPAP compliance and return to pulmonary for outpatient follow-up
-Would likely benefit from outpatient EP consultation
Elevated cardiac troponin with no chest pain, suspect nonischemic myocardial injury secondary to rapid atrial fibrillation and heart failure exacerbation
-Patient reports prior catheterization approximately 5 years ago at [place] that did not require intervention
-Records requested for review; possible repeat ischemic evaluation as an outpatient
-Optimize medical therapy as able
Ongoing alcoholism
-discussed importance of ETOH cessation. [facility] protocol, monitor for withdrawal
-Discussed with primary service
Elevated LFTs likely related to ongoing alcohol use with a component of heart failure decompensation.
-Monitor LFTs with diuresis
-Continued alcohol cessation
-Will defer workup to medicine if needed
Squamous cell tongue cancer status post radical neck dissection at [place] 2011; no chemotherapy or radiation
-No history of dysphagia per patient.
Patient considering switching cardiology practice to [place] rather than [place].
Progress Note - Global Security Architect
Subjective
Date of Service: February 20, 2024
Patient seen and examined. Patient overall reports he is feeling less short of breath. Last night he was able to get good sleep. This a.m. after taking medication does note some mild nausea. Denies chest pain or shortness of breath
Objective
Labs:
02/20/24 04:09
02/20/24 04:09
Labs
Hgb 16.4 g/dL (13.0-18.0) 02/20/24 04:09
Hct 45.9 % (39.0-52.0) 02/20/24 04:09
Plt Count 175 10^3/uL (130-400) 02/20/24 04:09
PT 16.6 Sec (11.4-14.6) H 02/18/24 17:33
INR 1.33 02/18/24 17:33
APTT 31.4 Sec (23.4-35.0) 02/18/24 17:33
Sodium 136 mmol/L (135-145) 02/20/24 04:09
Potassium 4.1 mmol/L (3.5-5.1) 02/20/24 04:09
BUN 33 mg/dl (9-20) H 02/20/24 04:09
Creatinine 1.0 mg/dL (0.7-1.3) 02/20/24 04:09
Glucose 110 mg/dl (70-99) H 02/20/24 04:09
Troponins
02/18/24 02/18/24 02/18/24
11:51 17:33 23:28
Troponin I 0.025 0.023 0.038 H* D
02/19/24 02/19/24 02/19/24
07:30 13:30 19:18
Troponin I 0.042 H* Cancelled 0.047 H*
02/20/24 02/20/24
04:09 10:10
Troponin I 0.050 H* Cancelled
Vital Signs and I&O:
Vital Signs
Temp Pulse Resp BP Pulse Ox
97.8 F 77 18 143/88 97
02/20/24 07:00 02/20/24 09:45 02/20/24 07:00 02/20/24 08:27 02/20/24 07:42
Vital Signs
Temp Pulse Resp BP Pulse Ox
97.8 F 77 18 143/88 97
02/20/24 07:00 02/20/24 09:45 02/20/24 07:00 02/20/24 08:27 02/20/24 07:42
Intake & Output
02/18/24 02/19/24 02/20/24 02/21/24
06:59 06:59 06:59 06:59
Intake Total 960 / 960 480 / 480
Output Total 3050 / 3050 1000 / 1000 500 / 500
Balance -3050 / -3050 -40 / -40 -20 / -20
Physical Exam
Physical Exam
GEN: No distress, awake, Ox3, sitting up in chair
HEENT: supple, anicteric, mmm
LUNGS: CTA, no wheezes/rales, room air
CV: Reg, S1/S2, no murmur, rub or gallop
ABD: soft, BS+, NT/ND
EXT: No edema, clubbing or cyanosis
NEURO: Gross non-focal
SKIN: No rash, warm, dry, pink
l
[2024-02-20 12:11] LABS: Magnesium 2.1 mg/dl (1.6-2.3)
--- NOTE | 2024-02-20 13:34 | W.PN.HOSP.TC ---
Today's Communication/Plan
-
cont iv lasix
cont GDMT - may need to be changed outpatient
eliquis
Assessment / Plan
Assessment / Plan
Physical Exam
General: Comfortable and Conversant; No Pain, Fever or Chills
HEENT: NormoCephalic, Anicteric, Moist mucous membranes, PERRLA, [place] Conjunctivae, No Ptosis and Other (No visible neck swelling)
Respiratory: Clear; No Wheezes, Rales or Rhonchi
Cardiac: S1/S2, regular; No Murmur, Rub or Gallop
GI: Soft, Non Tender, Non Distended, Normal Bowel Sounds and No Hepatosplenomegaly
Rectal: Deferred by Provider
Genito-urinary: Deferred by me
Musculoskeletal: No Clubbing, No Cyanosis, Edema; No Edema, Left Upper Extremity or Edema, Right Upper Extremity
Skin: Warm and Dry; No Rash or Jaundice
Neuro: AO x 3, No Motor Deficits, Nonfocal/grossly intact, Cranial Nerves Intact and No Sensory Deficits; No Slurred Speech, Facial Droop or Tremors
Psych: Calm
#Acute on Chronic HFrEF and HFpEF
#Hx cardiomyopathy patient believes last EF was 38% 2021 at [place]
BNP 6810
Cont IV Lasix
Check 2D echo: EF 30% grade 2 diastolic dysfunction, severe aortic regurgitation although this was in afib; will need to f/u again outpatient
Monitor daily weights, I's and O's
� Continue GDMT
#Atrial fibrillation�reoccurrence/history remote A-fib with cardioversion
Cardioverted 02/18
� Continue Eliquis
� Started on amiodarone
� Continue Toprol
#Nonischemic myocardial injury
� Exacerbated by acute HFrEF and atrial fibrillation
� Troponins flat
� No chest pain
#HTN- benign
See plan above
#Alcohol abuse
Was drinking 1.7 L of whiskey or bourbon and half a case a day of beer up until mid January
Currently drinking 8 ounces a day of either scotch or bourbon +3 beers daily last drink was midnight
-MSAs screen with protocol
-IV thiamine, IV folate
-Check magnesium
�Educated on cessation
#Frequent migraines
2 to 3/week not on any prophylactic meds
Takes Excedrin migraine which does contain aspirin 250 mg, plus caffeine 65 mg, acetaminophen 250 mg
�Possibly due to alcohol use, nitrates�advised on avoiding a possible
#GERD
-Continue omeprazole 20 mg daily
#Cervical DDD
Meloxicam 15 mg daily as needed last dose yesterday 02/17/2024
DVT prophylaxis
Patient to be initiated on Eliquis for A-fib
Full code
Anticipated Discharge: Within 24 hours
Subjective/Interval History
-
Date of Service: February 20, 2024
no acute changes,, remains in sinus rhythm
Objective Data
-
Labs:
Laboratory Results
02/20/24
04:09
WBC 9.0
Hgb 16.4
Hct 45.9
Plt Count 175
Sodium 136
Potassium 4.1
Chloride 106
Carbon Dioxide 21 L
BUN 33 H
Creatinine 1.0
Glucose 110 H
Calcium 9.3
Total Bilirubin 1.1
AST 62 H
ALT 82 H
Alkaline Phosphatase 66
Vital Signs:
Vital Signs
Temp Pulse Resp BP Pulse Ox
97.8 F 77 18 143/88 97
02/20/24 07:00 02/20/24 09:45 02/20/24 07:00 02/20/24 08:27 02/20/24 07:42
I&O
02/19/24 02/20/24 02/21/24
06:59 06:59 06:59
Intake Total 960 / 960 480 / 480
Output Total 3050 / 3050 1000 / 1000 500 / 500
Balance -3050 / -3050 -40 / -40 -20 / -20
Review of Systems
-
History Source: Patient
All other systems: Not reviewed unless documented
Data Reviewed
-
Diagnostic Radiology: Image personally visualized and interpreted and Report Reviewed by me
Medical Tests (Nuc Med, Echo etc): Report Reviewed by me
Labs: Labs Reviewed by me
--- NOTE | 2024-02-20 14:44 | CM ---
pt requested be cares info for subt abuse counseling , he wants to call them himself.
[2024-02-20] MEDS: ATIVAN 1 MG PO (15:16)
--- NOTE | 2024-02-20 18:56 | PTCARENOTE ---
pt is sr on the monitor with PVCs, vss. pt was pacing room with at bedside stating he was anxious, msas completed Ativan given as ordered, see documentation. pt has been ambulating the halls and tolerating well. pt educated on plan of care and
pt verbalized understanding. call aguilar within reach.
--- NOTE | 2024-02-20 23:55 | PTCARENOTE ---
Pt. noted to be tachycardic rate 120's-130's at 2051; had been NSR in the 70's. Stated he had some mild SOB and felt dizzy with movement. BP 153/95, RA pulse ox 96%. No chest pain. EKG completed showing accelerated junctional rhythm and critical
long QTc interval. Dr. Aakash Ferrer notified of all of the above, EKG results shown to him, order for Toprol 50 mg x 1 obtained and given (per Dr. Ferrer EKG showing A-tach). Pt. encouraged to stay in bed and 2L O2 placed for comfort.
Symptoms have since resolved, pt. remains in A-tach, rate 110's at rest. Otherwise pt. has no complaints.
--- NOTE | 2024-02-21 03:36 | PTCARENOTE ---
Pt. converted back to NSR 50's-60's at 0023 while sleeping. Telemetry strip in chart.
[2024-02-21 03:46] VITALS: BP 115/69
[2024-02-21 04:26] LABS: % Basophils 0.5 % (0-2); % Eosinophils 4.7 % (0-6); % Immature Granulocytes 0.4 % (0-0.5); % Neutrophils 62.4 % (42.2-75.2); Absolute Eosinophils 0.4 10^3/uL (0-0.7); Absolute Lymphocytes 1.7 10^3/uL (1.2-3.4); Absolute Neutrophils 5.3 10^3/uL (1.4-6.5); Hematocrit 47.4 % (39.0-52.0); Mean Corp Hgb Conc. 35.9 g/dL (33.0-37.0); Mean Corpuscular Hgb 33.7 pg (27.0-31.0); Mean Corpuscular Volume 93.9 fL (80.0-94.0); Mean Platelet Volume 10.6 fL (7.4-10.4); Nucleated Red Blood Cells % 0 % (-); Platelet Count 200 10^3/uL (130-400); Red Blood Cell Count 5.05 10^6/uL (4.70-6.10); Red Cell Dist. Width 12.5 % (11.5-14.5); White Blood Cell Count 8.5 10^3/uL (4.8-10.8)
[2024-02-21 04:48] LABS: ALT (SGPT) 103 U/L (0-50); AST (SGOT) 86 U/L (17-59); Albumin 4.2 g/dl (3.5-5.0); Alkaline Phosphatase 62 U/L (38-126); Blood Urea Nitrogen 32 mg/dl (9-20); Calcium 9.7 mg/dl (8.4-10.2); Carbon Dioxide 25 mmol/L (22-30); Chloride 101 mmol/L (98-107); Estimated Creatinine Clearance 79 ml/min; Glucose 106 mg/dl (70-99); Potassium 4.1 mmol/L (3.5-5.1); Sodium 135 mmol/L (135-145); Total Bilirubin 1.2 mg/dl (0.2-1.3); Total Protein 6.7 g/dl (6.3-8.2); eGFR > 60.00
[2024-02-21 06:00] VITALS: BMI 26.9
[2024-02-21 07:10] VITALS: BP 126/84
--- NOTE | 2024-02-21 08:39 | W.PN.CARDCBS ---
Today's Communication / Plan
-
Transition from IV to oral Lasix today
Initiating Jardiance today
Impression / Plan
-
Primary Talent Acquisition Specialist: Dr. Conor Streeter of [facility]
Assessment:
Presented 02/18/2024 with DAY/orthopnea
Acute on chronic heart failure with presumed reduced ejection fraction, proBNP 6810
Nonischemic cardiomyopathy, EF 40-45% by echo 2022, EF now 30% on echo 02/18/2024
Paroxysmal atrial fibrillation with controlled ventricular response
Multiple cardioversion in past
s/p CV 02/19/2024
Hypertension
Squamous cell tongue cancer status post radical neck dissection at [place] 2012 with residual pain/swelling/tingling to arm
History of migraines
JACK previously on CPAP
GERD
Alcohol use disorder with prior rehab stay, family history of alcoholism
Reports recent suspected R broken rib
ECHO 11/07/22: EF 40 to 45%, mild global hypokinesis, grade 1 diastolic dysfunction, mild MR, mild AI
Echo 02/18/2024: Dilated left ventricle with moderate to severely reduced LV systolic function with diffuse hypokinesis. EF by volumetric assessment 30% with mild LVH and grade 2 diastolic dysfunction. RV dilated with normal function. Severely
dilated left atrium. Dilated right atrium. Mild MR and TR. Aortic sclerosis with eccentric moderate to severe aortic regurgitation. Estimated pulmonary artery pressure 45-50 mmHg. No pericardial effusion. IVC is dilated.
Plan:
Acute on chronic heart failure with reduced ejection fraction in the setting of rapid atrial fibrillation and ongoing alcohol abuse
-Worsening ejection fraction compared to last year now with a EF estimated 25-30% with global biventricular dysfunction
-Initial proBNP 6810
-Had previously followed with [facility] cardiology, Dr. Streeter, last seen in July 2022. Reports prior cardiac catheterization perhaps 5 years ago which did not require stenting. Records have been requested for review
-Continue IV diuresis and optimization of goal-directed medical therapy.
Weight is down 7.5 pounds since admission
BUN and creatinine up slightly to 32 and 1
Overall volume status has significantly improved
Will transition from IV Lasix to oral Lasix today, will stop IV Lasix and start oral Lasix 40 mg p.o. twice daily
Rhythm control will be a very important component of his heart failure management, continue amiodarone
Continue Toprol, Losartan.
Will add Jardiance 10 mg daily
He is unable to afford Entresto (Case management assessed cost of Entresto $619 a month before deductible then $0 and Jardiance $25 a month but need prior auth).
-Discussed the importance of alcohol cessation. Patient has previously been successful in rehab and has been trying to cut down alcohol use on his own
-May also need eventual additional ischemic evaluation pending review of records received from [facility]
History of paroxysmal atrial fibrillation
-Patient reports having had [address] [facility]; no history of ablation
-He was not on oral anticoagulation at time of admission due to patient preference
-[id number] score of 4 for age, hypertension, CHF. Eliquis 5 mg twice daily initiated in ER 02/18/24, patient responsible for 20% of total med cost, which will be approx. $140/mo. Copay card provided for free 30 days
-KATE cardioversion 02/19/24 successful with converting atrial fibrillation to sinus rhythm.
Has had paroxysms of atrial tachycardia, continue amiodarone at current dose 200 mg twice daily; started amiodarone 200 mg twice daily (02/19/2024), EKG 02/20/2024 sinus rhythm, QTc 492
-TSH within normal
-Alcohol cessation strongly advised
-Sleep apnea with previous CPAP recommendations; strongly advised CPAP compliance and return to pulmonary for outpatient follow-up
-Would likely benefit from outpatient EP consultation
Elevated cardiac troponin with no chest pain, suspect nonischemic myocardial injury secondary to rapid atrial fibrillation and heart failure exacerbation
-Patient reports prior catheterization approximately 5 years ago at [place] that did not require intervention
-Records requested for review; possible repeat ischemic evaluation as an outpatient
-Optimize medical therapy as able
Ongoing alcoholism
-discussed importance of ETOH cessation. [facility] protocol, monitor for withdrawal
-Discussed with primary service
Elevated LFTs likely related to ongoing alcohol use with a component of heart failure decompensation.
-Monitor LFTs with diuresis
-Continued alcohol cessation
-Will defer workup to medicine if needed
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
-No history of dysphagia per patient.
Patient considering switching cardiology practice to [place] rather than [place].
Total time 52 minutes
Progress Note - Talent Acquisition Specialist
Subjective
Date of Service: February 21, 2024
He describes a twinge of left-sided chest discomfort, using 1 finger to point to his left breast that occurs sometimes with rest and sometimes with physical activity it is fleeting in duration.
No shortness of breath. He had some palpitations last night which resolved by this morning. This coincided with the development of recurrent atrial tachycardia yesterday converting to normal sinus rhythm around 12 AM.
Objective
Labs:
02/21/24 03:52
02/21/24 03:52
Labs
Hgb 17.0 g/dL (13.0-18.0) 02/21/24 03:52
Hct 47.4 % (39.0-52.0) 02/21/24 03:52
Plt Count 200 10^3/uL (130-400) 02/21/24 03:52
PT 16.6 Sec (11.4-14.6) H 02/18/24 17:33
INR 1.33 02/18/24 17:33
APTT 31.4 Sec (23.4-35.0) 02/18/24 17:33
Sodium 135 mmol/L (135-145) 02/21/24 03:52
Potassium 4.1 mmol/L (3.5-5.1) 02/21/24 03:52
BUN 32 mg/dl (9-20) H 02/21/24 03:52
Creatinine 1.0 mg/dL (0.7-1.3) 02/21/24 03:52
Glucose 106 mg/dl (70-99) H 02/21/24 03:52
Troponins
02/18/24 02/18/24 02/18/24
11:51 17:33 23:28
Troponin I 0.025 0.023 0.038 H* D
02/19/24 02/19/24 02/19/24
07:30 13:30 19:18
Troponin I 0.042 H* Cancelled 0.047 H*
02/20/24 02/20/24
04:09 10:10
Troponin I 0.050 H* Cancelled
Vital Signs and I&O:
Vital Signs
Temp Pulse Resp BP Pulse Ox
97.9 F 63 20 115/69 94
02/21/24 07:07 02/21/24 04:00 02/21/24 07:07 02/21/24 03:46 02/21/24 07:07
Vital Signs
Temp Pulse Resp BP Pulse Ox
97.9 F 63 20 115/69 94
02/21/24 07:07 02/21/24 04:00 02/21/24 07:07 02/21/24 03:46 02/21/24 07:07
Intake & Output
02/19/24 02/20/24 02/21/24 02/22/24
06:59 06:59 06:59 06:59
Intake Total 960 / 960 960 / 960
Output Total 3050 / 3050 1000 / 1000 1400 / 1400
Balance -3050 / -3050 -40 / -40 -440 / -440
Physical Exam
Physical Exam
Well-appearing, no acute distress
Regular rate and rhythm with normal S1 and S2 no S3 no S4 is a grade 1/6 apical holosystolic murmur no rubs.
Lungs are clear to auscultation bilaterally without wheezes rales or rhonchi
Extremities show no clubbing or cyanosis, there is trace pretibial edema bilaterally
[2024-02-21] MEDS: ELIQUIS 5 MG PO (08:45)
[2024-02-21] MEDS: MAGNESIUM OXIDE 500 MG PO (08:45)
[2024-02-21] MEDS: COZAAR 50 MG PO (08:45)
[2024-02-21] MEDS: PROTONIX 40 MG PO (08:45)
[2024-02-21] MEDS: FOLVITE 1 MG PO (08:46)
[2024-02-21] MEDS: LASIX 40 MG IV (08:46)
[2024-02-21] MEDS: TOPROL XL 50 MG PO (08:46)
[2024-02-21] MEDS: PACERONE 200 MG PO (08:46)
[2024-02-21] MEDS: THIAMINE INJECTION 200 MG IV (09:03)
[2024-02-21] MEDS: JARDIANCE 10 MG PO (10:47)
--- NOTE | 2024-02-21 12:08 | W.PN.HOSP.TC ---
Addendum entered and electronically signed by Alli Mancini MD 02/21/24 15:15:
[id number]
Original Note:
Today's Communication/Plan
-
Change to 40mg po lasix BID
Losartan - can change to Entresto outpatient
Jardiance
Cards outpatient f/u
EtOH cessation
Assessment / Plan
Assessment / Plan
Physical Exam
General: Comfortable and Conversant; No Pain, Fever or Chills
HEENT: NormoCephalic, Anicteric, Moist mucous membranes, PERRLA, [place] Conjunctivae, No Ptosis and Other (No visible neck swelling)
Respiratory: Clear; No Wheezes, Rales or Rhonchi
Cardiac: S1/S2, regular; No Murmur, Rub or Gallop
GI: Soft, Non Tender, Non Distended, Normal Bowel Sounds and No Hepatosplenomegaly
Rectal: Deferred by Provider
Genito-urinary: Deferred by me
Musculoskeletal: No Clubbing, No Cyanosis, Edema; No Edema, Left Upper Extremity or Edema, Right Upper Extremity
Skin: Warm and Dry; No Rash or Jaundice
Neuro: AO x 3, No Motor Deficits, Nonfocal/grossly intact, Cranial Nerves Intact and No Sensory Deficits; No Slurred Speech, Facial Droop or Tremors
Psych: Calm
#Acute on Chronic HFrEF and HFpEF
#Hx cardiomyopathy patient believes last EF was 38% 2021 at [place]
BNP 6810
IV Lasix - Change to 40mg po lasix
Losartan - can change to Entresto outpatient
Jardiance
Check 2D echo: EF 30% grade 2 diastolic dysfunction, severe aortic regurgitation although this was in afib; will need to f/u again outpatient
Monitor daily weights, I's and O's
� Continue GDMT
-F/u DCA or AMS outpatient
-Repeat echo outpatient
-EtOH cessation
#Atrial fibrillation�reoccurrence/history remote A-fib with cardioversion
Cardioverted 02/18
� Continue Eliquis
� Started on amiodarone
� Continue Toprol
#Nonischemic myocardial injury
� Exacerbated by acute HFrEF and atrial fibrillation
� Troponins flat
� No chest pain
#HTN- benign
See plan above
#Alcohol abuse
Was drinking 1.7 L of whiskey or bourbon and half a case a day of beer up until mid January
Currently drinking 8 ounces a day of either scotch or bourbon +3 beers daily last drink was midnight
-MSAs screen with protocol
-IV thiamine, IV folate
-Check magnesium
�Educated on cessation
-CM gave patient resources
#Frequent migraines
2 to 3/week not on any prophylactic meds
Takes Excedrin migraine which does contain aspirin 250 mg, plus caffeine 65 mg, acetaminophen 250 mg
�Possibly due to alcohol use, nitrates�advised on avoiding a possible
#GERD
-Continue omeprazole 20 mg daily
#Cervical DDD
Meloxicam 15 mg daily as needed last dose yesterday 02/17/2024
DVT prophylaxis
Patient to be initiated on Eliquis for A-fib
Full code
More than 30 minutes spent in discharge including
Final examination of the patient
Summarizing hospital stay
Instructions for continuing care to all relevant caregivers
Preparation of discharge records, prescriptions, and referral forms
Total time spent (35 in minutes):
Anticipated Discharge: Today
Subjective/Interval History
-
Date of Service: February 21, 2024
no acute events
Objective Data
-
Labs:
Laboratory Results
02/21/24
03:52
WBC 8.5
Hgb 17.0
Hct 47.4
Plt Count 200
Sodium 135
Potassium 4.1
Chloride 101
Carbon Dioxide 25
BUN 32 H
Creatinine 1.0
Glucose 106 H
Calcium 9.7
Total Bilirubin 1.2
AST 86 H
ALT 103 H
Alkaline Phosphatase 62
Vital Signs:
Vital Signs
Temp Pulse Resp BP Pulse Ox
97.9 F 65 20 126/84 94
02/21/24 07:07 02/21/24 10:00 02/21/24 07:07 02/21/24 08:45 02/21/24 07:07
I&O
02/20/24 02/21/24 02/22/24
06:59 06:59 06:59
Intake Total 960 / 960 960 / 960
Output Total 1000 / 1000 1400 / 1400
Balance -40 / -40 -440 / -440
Review of Systems
-
History Source: Patient
All other systems: Not reviewed unless documented
Data Reviewed
-
Diagnostic Radiology: Image personally visualized and interpreted and Report Reviewed by me
Medical Tests (Nuc Med, Echo etc): Report Reviewed by me
Labs: Labs Reviewed by me
--- NOTE | 2024-02-21 12:14 | W.DS.TRANS ---
DC Summary - Medical Office Manager
-
Discharge Instructions:
Sleep Apnea Risk Intermediate
Discharge Diagnosis/Procedures #Acute on Chronic HFrEF and HFpEF
Diet Low Fat,Low Cholesterol,Restrict fluids to 48 oz
,2 Gram Sodium
Activity As tolerated
Blood Work bmp, LFTs in 3-5 days with pcp/cardiology
Instructions:
Stand-Alone Forms:
Changes to Home Medications: Yes
Discharge Medications:
DC Medications w/original date entered in [facility]
Nitric Boost 1 dose PO DAILY Supplement 02/18/24
Super Beets 1 dose PO DAILY Supplement 02/18/24
coenzyme Q10 100 mg capsule (Co Q-10) 100 mg PO DAILY Supplement 02/18/24
lactobacillus combination no.4 3 billion cell capsule (Probiotic) 3,000 mmu cells PO DAILY Supplement 02/18/24
losartan 50 mg tablet 50 mg PO BID Blood Pressure 02/18/24
magnesium oxide 500 mg capsule 500 mg PO BID Supplement 02/18/24
multivitamin 1 tab PO DAILY Supplement 02/18/24
omeprazole 20 mg capsule,delayed release 20 mg PO DAILY Gastrointestinal Issue 02/18/24
sildenafil 25 mg tablet 25 mg PO DAILYPRN PRN heart tightness 02/18/24
turmeric 400 mg capsule 1 mg PO DAILY Supplement 02/18/24
amiodarone 200 mg tablet 200 mg PO BID 30 days #60 tabs 02/21/24
apixaban 5 mg tablet (Eliquis) 5 mg PO BID 30 days #60 tabs 02/21/24
empagliflozin 10 mg tablet (Jardiance) 10 mg PO DAILY 30 days #30 tabs 02/21/24
furosemide 40 mg tablet 40 mg PO BID AT 0800,1600 30 days #60 tabs 02/21/24
metoprolol succinate 50 mg tablet,extended release 24 hr 50 mg PO DAILY 30 days #30 tabs 02/21/24
Home Medication Changes
amiodarone 200 mg tablet 200 mg PO BID 30 days #60 tabs 02/21/24
apixaban 5 mg tablet (Eliquis) 5 mg PO BID 30 days #60 tabs 02/21/24
empagliflozin 10 mg tablet (Jardiance) 10 mg PO DAILY 30 days #30 tabs 02/21/24
furosemide 40 mg tablet 40 mg PO BID AT 0800,1600 30 days #60 tabs 02/21/24
metoprolol succinate 50 mg tablet,extended release 24 hr 50 mg PO DAILY 30 days #30 tabs 02/21/24
Pending Results: No
[2024-02-21 12:22] VITALS: BP 122/73
[2024-02-21 12:23] VITALS: BP 122/73
== END 2024-02-21 13:45 | disposition home or self-care (01) | DRG 291 ==
LOC: IVU 14:30
PROVIDERS: Clinical Nurse Specialist Family Health; Internal Medicine Cardiovascular Disease; Nurse Practitioner Gerontology; ADMITTING PHYSICIAN Internal Medicine; CONSULT PHYSICIAN Internal Medicine Cardiovascular Disease; EMERGENCY PHYSICIAN Emergency Medicine; FAMILY PHYSICIAN Family Medicine
PROC: 5A2204Z Restoration of Cardiac Rhythm, Single (ICD-10-PCS; 2024-02-19)
DX: I11.0 Hypertensive heart disease with heart failure (principal); I50.43 Acute on chronic combined systolic (congestive) and diastolic (congestive) heart failure; I27.20 Pulmonary hypertension, unspecified; F10.10 Alcohol abuse, uncomplicated; I5A Non-ischemic myocardial injury (non-traumatic); I42.8 Other cardiomyopathies; I48.0 Paroxysmal atrial fibrillation; I25.10 Atherosclerotic heart disease of native coronary artery without angina pectoris; K21.9 Gastro-esophageal reflux disease without esophagitis; M19.90 Unspecified osteoarthritis, unspecified site; M50.30 Other cervical disc degeneration, unspecified cervical region; G47.33 Obstructive sleep apnea (adult) (pediatric); G47.00 Insomnia, unspecified; Z79.1 Long term (current) use of non-steroidal anti-inflammatories (NSAID); Z79.899 Other long term (current) drug therapy; Z85.810 Personal history of malignant neoplasm of tongue; Z82.49 Family history of ischemic heart disease and other diseases of the circulatory system; Z81.1 Family history of alcohol abuse and dependence
CPT/HCPCS: 71046; 80048; 80053; 80306; 81003; 82010; 82077; 82977; 83735; 83880; 84100; 84443; 84484; 85025; 85610; 85730; 92960; 93005; 93306; 93312; 93320; 93325; 96374; 97162; 97166; 99285

== ENCOUNTER → 2024-05-19 08:34 | Outpatient (REF) | payer OTHER, MEDICARE, SELFPAY | LOC: HWRCS 08:34 | PROVIDERS: ATTENDING PHYSICIAN Physician Assistant; FAMILY PHYSICIAN Family Medicine; REFERRING PHYSICIAN Internal Medicine Cardiovascular Disease | DX: I50.20 Unspecified systolic (congestive) heart failure (principal) | CPT/HCPCS: 93306 ==

== ENCOUNTER → 2024-06-13 07:23 | Outpatient (REF) | payer OTHER, MEDICARE, SELFPAY | LOC: DHCBC/DCA 07:23 | PROVIDERS: ATTENDING PHYSICIAN Internal Medicine Cardiovascular Disease; FAMILY PHYSICIAN Family Medicine | DX: I50.20 Unspecified systolic (congestive) heart failure (principal) | CPT/HCPCS: 78452; 93017; A9500; J2785 ==

== ENCOUNTER 2024-06-23 12:06 | Day surgery (SDC) | payer OTHER, SELFPAY ==
[2024-06-23] VITALS (11 sets, daily range): BP systolic 137–169; BP diastolic 62–89; BMI 27.2
[2024-06-23 12:35] LABS: Hematocrit 46.2 % (39.0-52.0); Hemoglobin 15.6 g/dL (13.0-18.0); Mean Corp Hgb Conc. 33.8 g/dL (33.0-37.0); Mean Corpuscular Volume 94.7 fL (80.0-94.0); Mean Platelet Volume 10.5 fL (7.4-10.4); Platelet Count 239 10^3/uL (130-400); Red Blood Cell Count 4.88 10^6/uL (4.70-6.10); Red Cell Dist. Width 12.9 % (11.5-14.5); White Blood Cell Count 7.6 10^3/uL (4.8-10.8)
[2024-06-23 12:39] LABS: ALT (SGPT) 35 U/L (0-50); AST (SGOT) 35 U/L (17-59); Albumin 4.8 g/dl (3.5-5.0); Alkaline Phosphatase 63 U/L (38-126); Blood Urea Nitrogen 29 mg/dl (9-20); Calcium 9.7 mg/dl (8.4-10.2); Carbon Dioxide 30 mmol/L (22-30); Chloride 99 mmol/L (98-107); Estimated Creatinine Clearance 79 ml/min; Glucose 93 mg/dl (70-99); Potassium 4.5 mmol/L (3.5-5.1); Sodium 137 mmol/L (135-145); Total Protein 7.8 g/dl (6.3-8.2); eGFR > 60.00
[2024-06-23] MEDS: LOW STRENGTH ASPIRIN 324 MG PO (12:55)
[2024-06-23 15:42] LABS: ACT-LR - POC 221 Seconds (116-155)
[2024-06-23 15:54] LABS: ACT-LR - POC 200 Seconds (116-155)
[2024-06-23 16:05] LABS: ACT-LR - POC 211 Seconds (116-155)
--- NOTE | 2024-06-23 16:25 | ITS.CL.CATH ---
[facility] - Catheterization
Cardiac Catheterization
Procedure Report:
RIGHT AND LEFT HEART STUDY
Date of Procedure: June 23, 2024
Referring: Dr. Farhan Ferrer
PROCEDURES:
1. Right heart catheterization
2. Left heart catheterization with coronary and single-plane left ventriculography
INDICATION: This is a 69 y/o gentleman with a PMH notable for heavy alcohol use, paroxysmal atrial fibrillation, prior nonischemic cardiomyopathy, history of hypertension and squamous cell cancer of the tongue s/p radical neck dissection at the [place]
in 2011. He was hospitalized at [facility] 02/18/2024 to 02/21/2024 with acute heart failure and was found to have an estimated ejection fraction of 30% by echocardiogram. He was started on guideline directed medical therapy for LV
dysfunction. He was started on amiodarone and apixaban but had been missing doses. He was seen in the office by Dr. Ferrer and reported vague chest discomfort both at rest and with exertion. When I asked the patient today if he even
experienced chest discomfort he stated that he did not.
A Lexiscan stress study was notable for an EF of 30% and a moderate area of moderate-severely reduced perfusion that was fixed in the inferior base to apex and basal inferolateral wall consistent with infarction. He is now referred for coronary
angiography. He did have a cardiac catheterization years ago that was normal
ACCESS: Right radial artery and right brachial vein
HEMODYNAMICS : mmHg
RA (m) : 9
RV (s/d) : 26/5, 10
PA (s/d, m) : 31/16, 22
PCWP (m) : 13
AO (s/d, m) : 134/67, 95
LV (s/d) : 132/8
LVEDP : 15
Estimated Josh Cardiac Output: 4.6 L / min and Cardiac Index: 2.2 L/ min / m-2
Systemic vascular resistance: 18.7 Wood units or 1496 [id number](-5)
Pulmonary vascular resistance: 2.0 Wood units or 157 [id number](-5)
CORONARY FINDINGS :
Dominance: Right
LEFT MAIN: Normal
LEFT ANTERIOR DESCENDING: The LAD arises normally from the left main and runs in the anterior interventricular groove. The LAD has a 40% stenosis in the mid vessel beyond the large bifurcating first diagonal branch that arises from the proximal
third of the LAD. The remainder of the LAD has only minor luminal irregularities in the distal vessel reaches but does not wraparound the apex.
CIRCUMFLEX: The circumflex is a very large caliber nondominant vessel supplying a single large obtuse marginal branch that bifurcates distally.
RIGHT CORONARY ARTERY: The right coronary artery is a large caliber dominant vessel. There is an eccentric stenosis at the origin of the RCA with calcification noted in the aortic root near the origin of the RCA. The ostia of the RCA was
cannulated with a JR4 with some difficulty. An AR1 guide catheter was utilized to engage the ostia for the iFR. The ostial stenosis appears approximately 70% but there was no pressure dampening with engagement of either the JR4 or AR1 guide
catheter. The proximal to distal RCA is a large caliber vessel that is widely patent. The PDA is large the PLB is large. The iFR in the distal RCA serially measured above the ischemic threshold at 0.96, 0.96, and 0.97 while the guide catheter was
disengaged from the RCA ostia (note the Verrata wire was normalized to the guide catheter while the guide was disengaged from the RCA origin). The Pd/Pa at the guide catheter measured 0.98 indicative of no significant baseline drift.
VENTRICULOGRAPHY: Left ventriculography is performed in an SAHU projection. The digital single-plane left ventricular ejection fraction is visually estimated at 30%. The ventricle is severely dilated with severe global hypokinesis and inferobasal
akinesis
HEMODYNAMIC ASSESSMENT OF THE RCA WITH A [employer] VERRATA WIRE: Intravenous heparin was administered and the ACT was monitored throughout the procedure. The Verrata wire was advanced to the origin of the AR1 guide catheter. The Verrata wire was
normalized to the guide catheter pressure while the guide was disengaged from the origin of the RCA. The AR1 catheter was advanced to engage the origin of the RCA and with a little luck the Verrata wire could be advanced to the distal vessel. The
AR1 catheter was then disengaged from the RCA origin and the iFR serially measured above the ischemic threshold 0.96, 0.96, and 0.97. The Verrata wire was then pulled back to the guide catheter while the guide was disengaged from the RCA origin and
the Pd/Pa measured 0.98 confirming no significant baseline drift.
RADIATION SUMMARY: Fluoro Time (min): 16.1, Dose (mGy): 747, DAP (Gy.cm2) : 60.9
CONCLUSIONS
1. Compensated right and left ventricular filling pressures
2. Excentric 70% ostial RCA stenosis with no pressure dampening with engagement of diagnostic JR4 or AR1 guide catheter. The iFR measured above the ischemic threshold. Mild-moderate plaque in the mid LAD beyond the first diagonal branch
RECOMMENDATIONS
1. Continue guideline directed medical therapy for dilated cardiomyopathy
2. Angiographically significant ostial RCA stenosis but iFR measures above the ischemic threshold. Could consider PET CT imaging if symptoms change or worsen in the future.
3. I stressed the need to remain abstinent of alcohol use and compliant with guideline directed medical therapy. It sounds as if he has been marginally compliant with medications.
4. Recommended initiation of statin therapy for goal LDL clearly less than 70 mg/dl.
Copy to: Dr. Farhan Ferrer
[2024-06-23] MEDS: NSS 1000 IV (17:16)
[2024-06-23] MEDS: TYLENOL 650 MG PO (18:11)
== END 2024-06-23 20:11 | disposition home or self-care (01) ==
LOC: CATH 12:06
PROVIDERS: ATTENDING PHYSICIAN Internal Medicine Interventional Cardiology; FAMILY PHYSICIAN Family Medicine; OTHER PHYSICIAN Internal Medicine Cardiovascular Disease
DX: I25.10 Atherosclerotic heart disease of native coronary artery without angina pectoris (principal); I11.0 Hypertensive heart disease with heart failure; I42.8 Other cardiomyopathies; I48.0 Paroxysmal atrial fibrillation; R07.89 Other chest pain; Z85.810 Personal history of malignant neoplasm of tongue
CPT/HCPCS: 93799; 80053; 85027; 85347; 93460; C1769; C1894; Q9967

== ENCOUNTER → 2024-08-02 08:11 | Outpatient (REF) | payer OTHER, SELFPAY | LOC: HWRAD 08:11 | PROVIDERS: ATTENDING PHYSICIAN Specialist; FAMILY PHYSICIAN Family Medicine | DX: R36.1 Hematospermia (principal) | CPT/HCPCS: 76770 ==

== ENCOUNTER 2025-01-05 19:47 | Emergency (ER) | payer OTHER, SELFPAY ==
[2025-01-05 19:49] VITALS: BP 164/75
[2025-01-05 20:19] LABS: Hematocrit 42.7 % (39.0-52.0); Hemoglobin 15.3 g/dL (13.0-18.0); Mean Corp Hgb Conc. 35.8 g/dL (33.0-37.0); Mean Corpuscular Volume 94.1 fL (80.0-94.0); Nucleated Red Blood Cells % 0 % (-); Platelet Count 180 10^3/uL (130-400); Red Cell Dist. Width 12.5 % (11.5-14.5); Urine Character Clear (Clear)
[2025-01-05 20:31] LABS: Urine Red Blood Cell 50-60 /HPF (0-2); Urine Squamous Cell 0-2 /LPF (Few); Urine White Cell 0-2 /HPF (0-5)
[2025-01-05 20:34] LABS: ALT (SGPT) 41 U/L (0-50); AST (SGOT) 38 U/L (17-59); Albumin 4.6 g/dl (3.5-5.0); Alkaline Phosphatase 58 U/L (38-126); Blood Urea Nitrogen 22 mg/dl (9-20); Calcium 9.5 mg/dl (8.4-10.2); Carbon Dioxide 22 mmol/L (22-30); Chloride 104 mmol/L (98-107); Glucose 157 mg/dl (70-99); Potassium 3.6 mmol/L (3.5-5.1); Sodium 136 mmol/L (135-145); Total Protein 7.3 g/dl (6.3-8.2); eGFR > 60.00
[2025-01-05 22:50] VITALS: BP 151/62
--- NOTE | 2025-01-05 22:59 | ED.GENMED ---
History of Present Illness
General
Chief Complaint: Urinary Symptoms
Source: patient
Time Seen by Provider: 01/05/25 22:24
History of Present Illness
History of Present Illness:
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
that he notes has been waxing and waning over the last year, reports that he was seen by urology previously who ordered a urinalysis and ultrasound but never had cystoscopy done, unclear reasons as to why this was not performed. Patient states that
the hematuria would occur intermittently, today passed some slightly larger clots but also for the first time noticed the blood within his semen. Patient is currently off anticoagulants which she discussed with his testing specialist, Dr. Ferrer, but
does not currently have any follow-up scheduled with urology. He denies any fevers, back or flank pain, nausea or vomiting, urinary frequency/urgency or dysuria. No other concerns presently.
Past History
Past History
ED Past Medical History: Arrthythmia, Cancer and GERD
ED Past Surgical History: Other
Social History
Tobacco: Non-smoker
Alcohol: Daily (bourbon)
Drug: None
Personal:
Living: with family
Review of Systems
Review of Systems
All Other Systems: ROS reviewed and negative except as documented in HPI and ROS
Phy Exam
Physical Exam
Physical Exam:
GENERAL: Alert , in no apparent distress
EYE: clear conjunctiva b/l
HEAD: NCAT
ENT: o/p clr, mmm.
CARDIAC: Regular rate and rhythm .
LUNGS: Clear breath sounds bilaterally, no acute respiratory distress, no wheezes/rales/rhonchi
ABDOMEN: Soft, without focal tenderness, no r/g, no cvat
NEUROLOGICAL: Alert and oriented
SKIN: Warm and dry, skin intact.
MUSCULOSKELETAL: No edema, well perfused.
PSYCH: Normal and appropriate interaction.
Scores
Heart Failure Risk
Heart Failure Risk Score: Not Applicable
Heart Score for Chest Pain Patients
STEMI patient?: Not applicable
Withdrawal Assessment of Alcohol
Withdrawal Assessment Completed?: Not applicable
Course
Orders/Labs/Results
Orders:
Orders
01/05/25 20:00
CBC/With Diff [Complete Blood Count/With Diff] Urgent
CMP [Comprehensive Metabolic Panel] Urgent
Urinalysis Reflex To Culture Urgent
Date Specimen was Collected: 01/05/25
Time Specimen was Collected: 19:51
Urine Microscopic Reflex Cult Urgent
01/05/25 22:29
Electrocardiogram (*1) Urgent
Reason for Study: Atrial Fibrillation
CT Abd/pel Without Iv Or Oral Urgent
Comment:
Reason For Exam: hematuria
Abnormal Lab Results
01/05/25
20:00
RBC 4.54 L 10^6/uL
(4.70-6.10)
MCV 94.1 H fL
(80.0-94.0)
MCH 33.7 H pg
(27.0-31.0)
BUN 22 H mg/dl
(9-20)
Glucose 157 H mg/dl
(70-99)
Ur Occult Blood Reflex 4+ A
(Negative)
Urine RBC 50-60 A /HPF
(0-2)
Urine Bacteria (Reflex) Few A
(Negative)
Urine Glucose 3+ A
(Negative)
Urine Albumin (Reflex) 1+ A
(Neg - Trace)
01/05/25 20:00
01/05/25 20:00
Vital Signs
Initial and Last Documented VS:
Initial Vital Signs
Temp Pulse Resp BP Pulse Ox
98.4 F 65 15 164/75 95
01/05/25 19:49 01/05/25 19:49 01/05/25 19:49 01/05/25 19:49 01/05/25 19:49
Last Documented Vital Signs
Temp Pulse Resp BP Pulse Ox
97.8 F 44 16 130/53 96
01/05/25 22:50 01/05/25 23:24 01/05/25 23:24 01/05/25 23:24 01/05/25 23:24
MDM/Problems Addressed
Differential Diagnosis Includes:
- Malignancy
- Urinary tract infection/cystitis
- Anemia
- Thrombocytopenia
- Renal/ureteral colic
MDM/Problems Addressed:
69-year-old male presenting to the emergency department for evaluation of hematuria that has been ongoing for at least 6 months if not longer, seen by urology in the past but for unknown reasons has not had cystoscopy planned. Patient currently off
anticoagulation. Arrives hemodynamically stable. Will check labs and urine as well as CT imaging. Patient will likely need close outpatient follow-up with urology for cystoscopy for further evaluation. I had extensive conversation with patient
and about the urgent need for follow-up especially given the prolonged symptoms without any care presently. They both expressed understanding. Will also notify urology pending remaining workup.
*Radiology
Radiology exam reviewed: radiology read reviewed
*Pulse Oximetry
SaO2: 97
Oxygen Mode of Delivery: Room air
Patient hypoxic: no
*Critical Care Note
Total Time (30-74mins, 75-104mins- exclusive of procedures): Not Applicable
Patient Management
Discussion with other providers: Manufacturing Supervisor 2Nd Shift
Escalation/DeEscalation of care consider admission/obs:
Patient CT scan does show slight concern for a nodule within the left portion of the bladder, difficult to visualize based off CT, I discussed this finding with the patient. Notified urology on-call, Dr. Arroyo, who states to have the patient
call the office and they will get him scheduled for a follow-up visit. Will treat with cefdinir for possible infection although urine does not show any signs at this time. Patient aware of return precautions. Stable for discharge home.
ED Attending Note
-
Portions of this chart may have been created with voice recognition software.� Occasional wrong word or��sound alike� substitutions may have occurred due to the inherent limitations of voice recognition software.
Discharge Plan
Departure
Patient Disposition: Home (Routine Discharge)
Date of Disposition: 01/05/25
Time of Disposition: 22:59
Patient with high blood pressure during this ER visit?: Yes
Discharge Problem:
Hematuria
Instructions: Blood in the urine (hematuria) - ED discharge instructions
Prescriptions:
New
cefdinir 300 mg capsule
300 mg PO BID 7 Days Qty: 14 0RF
No Action
multivitamin Tablet
1 tab PO DAILY
losartan 50 mg tablet
50 mg PO BID
sildenafil 25 mg Tablet
25 mg PO DAILYPRN PRN (Reason: heart tightness)
omeprazole 20 mg Capsule,Delayed Release(Dr/Ec)
20 mg PO DAILY
coenzyme Q10 [Co Q-10] 100 mg Capsule
100 mg PO DAILY
magnesium oxide 500 mg Capsule
500 mg PO BID
Probiotic 3 billion cell Capsule
3,000 mmu cells PO DAILY
turmeric 400 mg Capsule
1 mg PO DAILY
Nitric Boost
1 dose PO DAILY
Super Beets
1 dose PO DAILY
Eliquis 5 mg Tablet
5 mg PO BID 30 Days Qty: 60 0RF
furosemide 40 mg Tablet
40 mg PO BID AT 0800,1600 30 Days Qty: 60 0RF
amiodarone 200 mg Tablet
200 mg PO BID 30 Days Qty: 60 0RF
metoprolol succinate 50 mg Tablet Extended Release 24 Hr
50 mg PO DAILY 30 Days Qty: 30 0RF
Jardiance 10 mg Tablet
10 mg PO DAILY 30 Days Qty: 30 0RF
rosuvastatin 10 mg tablet
10 mg PO DAILY Qty: 30 5RF
Referrals:
Nikko Arroyo MD [Active, Urology]
Farhan Marie DO [Family Provider, Family Practice]
Interventions
Interventions:
*Risk Screen - Suicide Last Done: 01/05/25 19:49
*General Assessment Last Done: 01/05/25 19:49
*Neglect/Abuse Screening Last Done: 01/05/25 19:49
*ED COVID-19 Vaccine History Last Done: 01/05/25 19:49
*Nursing Disposition Last Done: 01/05/25 23:26
ED-Male Genitourinary Assessment Last Done: 01/05/25 22:30
Discharge Date and Time
Discharge Date/Time: 01/05/25 23:27
Print Language: GUATEMALAN
[2025-01-05 23:24] VITALS: BP 130/53
== END 2025-01-05 23:27 | disposition home or self-care (01) ==
LOC: EMR 19:47
PROVIDERS: Student in an Organized Health Care Education/Training Program; EMERGENCY PHYSICIAN Student in an Organized Health Care Education/Training Program; FAMILY PHYSICIAN Family Medicine
DX: R31.9 Hematuria, unspecified (principal); K21.9 Gastro-esophageal reflux disease without esophagitis; R03.0 Elevated blood-pressure reading, without diagnosis of hypertension; I48.0 Paroxysmal atrial fibrillation
CPT/HCPCS: 99284; 74176; 80053; 81003; 81015; 85025

== ENCOUNTER → 2025-01-18 08:23 | Outpatient (REF) | payer OTHER, SELFPAY | LOC: RAD 08:23 | PROVIDERS: ATTENDING PHYSICIAN Urology; FAMILY PHYSICIAN Family Medicine | DX: R31.0 Gross hematuria (principal); R36.1 Hematospermia | CPT/HCPCS: 74178; Q9967 ==

== ENCOUNTER 2025-02-17 06:16 | Day surgery (SDC) | payer OTHER, SELFPAY ==
[2025-02-14 08:59] LABS: Hematocrit 45.1 % (39.0-52.0); Hemoglobin 15.4 g/dL (13.0-18.0); Mean Corp Hgb Conc. 34.1 g/dL (33.0-37.0); Mean Corpuscular Volume 96.4 fL (80.0-94.0); Platelet Count 148 10^3/uL (130-400); Red Cell Dist. Width 12.5 % (11.5-14.5)
[2025-02-14 09:06] LABS: APTT 23.7 Sec (23.4-35.0); INR 1.00; PT 13.5 Sec (11.4-14.6)
[2025-02-14 10:03] LABS: ALT (SGPT) 56 U/L (0-50); AST (SGOT) 40 U/L (17-59); Albumin 4.3 g/dl (3.5-5.0); Alkaline Phosphatase 55 U/L (38-126); Blood Urea Nitrogen 22 mg/dl (9-20); Calcium 9.3 mg/dl (8.4-10.2); Carbon Dioxide 29 mmol/L (22-30); Chloride 102 mmol/L (98-107); Glucose 96 mg/dl (70-99); Potassium 4.5 mmol/L (3.5-5.1); Sodium 140 mmol/L (135-145); Total Protein 7.1 g/dl (6.3-8.2); eGFR > 60.00
[2025-02-14 14:08] VITALS: BMI 29.5
[2025-02-17] VITALS (13 sets, daily range): BP systolic 131–163; BP diastolic 63–81; BMI 29.5
[2025-02-17] MEDS: NORMOSOL-R/PLASMALYTE-A 1000 IV (14:14)
[2025-02-17] MEDS: CYSVIEW KIT 100 MG INTRAVES (14:19)
[2025-02-17] MEDS: SYRINGE NON-PUMP 50 MG IRRIG (16:42)
[2025-02-17] MEDS: SYRINGE NON-PUMP 50 ML IRRIG (16:42)
[2025-02-17] MEDS: TORADOL 15 MG IV (17:08)
== END 2025-02-17 20:07 | disposition home or self-care (01) ==
LOC: SDS 06:16
PROVIDERS: ATTENDING PHYSICIAN Urology; FAMILY PHYSICIAN Family Medicine
DX: C67.9 Malignant neoplasm of bladder, unspecified (principal); D49.4 Neoplasm of unspecified behavior of bladder; N32.3 Diverticulum of bladder; N30.20 Other chronic cystitis without hematuria
CPT/HCPCS: 52235; 36415; 80053; 85027; 85610; 85730; 88307; A9589

== ENCOUNTER 2025-04-20 06:29 | Day surgery (SDC) | payer OTHER, SELFPAY ==
--- NOTE | 2025-04-14 15:33 | PTCARENOTE ---
Approved to use ECG from 12/01/2024 for the surgery- per Candis Horton (Dr. More's office)
[2025-04-20] VITALS (7 sets, daily range): BP systolic 111–145; BP diastolic 55–75; BMI 26.5
[2025-04-20] MEDS: CYSVIEW KIT 100 MG INTRAVES (12:40)
[2025-04-20] MEDS: NORMOSOL-R/PLASMALYTE-A 1000 IV (13:11)
== END 2025-04-20 18:47 | disposition home or self-care (01) ==
LOC: SDS 06:29
PROVIDERS: ATTENDING PHYSICIAN Urology
DX: N32.9 Bladder disorder, unspecified (principal); Z85.51 Personal history of malignant neoplasm of bladder
CPT/HCPCS: 52235; C9738; 88307; A9589